=== PATIENT | male | born 1980 | race African-American/Black ===

== ENCOUNTER 2024-05-04 13:21 | Emergency (ER) | payer OTHER ==
[2024-05-04 13:42] VITALS: TEMP 97.9
--- NOTE | 2024-05-04 13:58 | ED ---
Male Urogenital HPI - General Source: patient, RN notes reviewed Mode of arrival: ambulatory Limitations: no limitations <Nella Montero - Last Filed: 05/04/24 13:58> - General Source: patient, RN notes reviewed Mode of arrival: ambulatory Limitations: no limitations <Wendi Jacob - Last Filed: 05/04/24 16:58> - General Chief complaint: Urogenital Stated complaint: Groin pain Time Seen by Provider: 05/04/24 13:40 - History of Present Illness Initial comments: This is a 43 year old male who presents to the emergency department for testicular pain. patient is currently at [facility] and was lifting weights yesterday. He suddenly developed pain to the right testicle. States that this was initially very swollen and after applying ice he was able to get the swelling to improve substantially. This area continues to be painful. He was sent to the emergency department to rule out an inguinal hernia. Denies any hx of similar problems in the past. Denies any urinary issues. (Wendi Jacob) - Related Data Previous Rx's Medication Instructions Recorded Ibuprofen [Motrin] 800 mg PO Q8H PRN #30 tab 05/04/24 Levofloxacin [Levaquin] 500 mg PO DAILY 10 Days #10 tab 05/04/24 Allergies Allergy/AdvReac Type Severity Reaction Status Date / Time No Known Allergies Allergy Verified 05/04/24 13:42 Review of Systems ROS Other: All systems not noted in ROS Statement are negative. <Nella Montero - Last Filed: 05/04/24 13:58> ROS Other: All systems not noted in ROS Statement are negative. <Wendi Jacob - Last Filed: 05/04/24 16:58> ROS Statement: Those systems with pertinent positive or pertinent negative responses have been documented in the HPI. Past Medical History Past Medical History: No Reported History Additional Past Surgical History / Comment(s): neck surgery, Past Psychological History: No Psychological Hx Reported Smoking Status: Current every day smoker Past Alcohol Use History: Abuse, Daily, Heavy Past Drug Use History: None Reported <Nella Montero - Last Filed: 05/04/24 13:58> General Exam Limitations: no limitations <Nella Montero - Last Filed: 05/04/24 13:58> Limitations: no limitations General appearance: alert, in no apparent distress Head exam: Present: atraumatic, normocephalic, normal inspection Respiratory exam: Present: normal lung sounds bilaterally. Absent: respiratory distress, wheezes, rales, rhonchi, stridor Cardiovascular Exam: Present: regular rate, normal rhythm, normal heart sounds. Absent: systolic murmur, diastolic murmur, rubs, gallop, clicks exam: Present: normal inspection, testicular tenderness (right). Absent: urethral discharge Neurological exam: Present: alert, oriented X3, CN II-XII intact Psychiatric exam: Present: normal affect, normal mood Skin exam: Present: warm, dry, intact, normal color. Absent: rash <Wendi Jacob - Last Filed: 05/04/24 16:58> Course Vital Signs 05/04/24 05/04/24 05/04/24 13:37 15:42 16:00 Temperature 97.9 F Pulse Rate 102 H 81 86 Respiratory 18 20 20 Rate Blood Pressure 136/68 131/83 O2 Sat by Pulse 97 98 99 Oximetry Medical Decision Making - Radiology Data Radiology results: report reviewed, image reviewed <Wendi Jacob - Last Filed: 05/04/24 16:58> - Medical Decision Making This is a 43 year old male who presents to the emergency department for testicular pain. Was pt. sent in by a medical professional or institution? @ -[facility] Did you speak to anyone other than the patient for history? @ -No Did you review nursing and triage notes? @ -Yes, and I agree, it is accurate with regards to the patient's symptoms. Were old charts reviewed? @ -No Differential Diagnosis? @ -Differential Scrotal Pain: Hernia, epididymitis, testicular torsion, UTI, STI, this is not meant to be an all-inclusive list. EKG interpreted by me (3pts min.)? @ -Not obtained X-rays interpreted by me (1pt min.)? @ -Not obtained CT interpreted by me (1pt min.)? @ -Not obtained U/S interpreted by me (1pt. min.)? @ -Ultrasound of the scrotum obtained. My interpretation identifies no evidence of testicular torsion What testing was considered but not performed? (CT, X-rays, U/S, labs)? Why? @ -None What meds were considered but not given? Why? @ -None Did you discuss the management of the patient with other professionals? @ -No Did you reconcile home meds? @ -No Was smoking cessation discussed for >3mins.? @ -No Was critical care preformed (if so, how long)? @ -No Were there social determinants of health that impacted care today? How? (Homelessness, low income, unemployed, alcoholism, drug addiction, transportation, low edu. Level, literacy, decrease access to med. care, shelter, rehab)? @ -No Was there de-escalation of care discussed even if they declined? (Discuss DNR or withdrawal of care, Hospice)? @ -No What co-morbidities impacted this encounter? (DM, HTN, Smoking, COPD, CAD, Cancer, CVA, Hep., AIDS, mental health diagnosis, sleep apnea, morbid obesity)? @ -None Was patient admitted / discharged? @ -Discharged. Urinalysis negative for signs of infection. US of the scrotum demonstrates a prominent hyperemia medial to the right testicle with an unclear etiology. They advised correlation for possible epididymitis. Patient does have a fair amount of tenderness to this region. 1g of Ceftriaxone and 1g of azithromycin administered in the emergency department. Rx for Levaquin and Ibuprofen provided for further management. Patient discharged back to [facility] in stable condition. Undiagnosed new problem with uncertain prognosis? @ -None Drug Therapy requiring intensive monitoring for toxicity (Heparin, Nitro, Insulin, Cardizem)? @ -None Were any procedures done? @ -None Diagnosis/symptom? @ -Epididymitis Acute, or Chronic, or Acute on Chronic? @ -Acute Uncomplicated (without systemic symptoms) or Complicated (systemic symptoms)? @ -Uncomplicated Side effects of treatment? @ -None Exacerbation, Progression, or Severe Exacerbation] @ -Not applicable Poses a threat to life or bodily function? @ -No Return precautions reviewed in depth, the patient is instructed to return to the emergency department with any new, worsening, or concerning symptoms. Patient verbalized understanding. This case was discussed in detail with the attending ED physician, Dr. Walsh. Presentation, findings, and treatment plan discussed in detail as well. (Wendi Jacob) - Lab Data Lab Results 05/04/24 Range/Units 14:52 Urine Color Light Yellow Urine Appearance Clear (Clear) Urine pH 7.5 (5.0-8.0) Ur Specific [place] 1.018 (1.001-1.035) Urine Protein Negative (Negative) Urine Glucose (UA) Negative (Negative) Urine Ketones Negative (Negative) Urine Blood Negative (Negative) Urine Nitrite Negative (Negative) Urine Bilirubin Negative (Negative) Urine Urobilinogen <2.0 (<2.0) mg/dL Ur Leukocyte Esterase Negative (Negative) Disposition <Nella Montero - Last Filed: 05/04/24 13:58> Is patient prescribed a controlled substance at d/c from ED?: No Time of Disposition: 15:30 <Wendi Jacob - Last Filed: 05/04/24 16:58> Clinical Impression: Epididymitis Disposition: HOME SELF-CARE Instructions (If sedation given, give patient instructions): Epididymitis (ED) Additional Instructions: Return to the emergency department with any new, worsening, or concerning symptoms. Take the antibiotic as prescribed for 10 days. Alternate with ibuprofen and Tylenol as needed for pain relief. Follow up with your primary care provider in 1-2 days. Prescriptions: Levofloxacin [Levaquin] 500 mg PO DAILY 10 Days #10 tab Ibuprofen [Motrin] 800 mg PO Q8H PRN #30 tab PRN Reason: Pain Referrals: None,Stated [Primary Care Provider] - 1-2 days
[2024-05-04] MEDS: KETOROLAC 15 MG/ML 1 ML VIAL IM STA (14:54)
[2024-05-04 15:07] LABS: Appearance,Urine Clear (Clear); Bilirubin,Urine Negative (Negative); Blood,Urine Negative (Negative); Color,Urine Light Yellow; Glucose,Urine (UA) Negative (Negative); Ketones,Urine Negative (Negative); Leukocyte Esterase,Urine Negative (Negative); Nitrite,Urine Negative (Negative); PH, Urine 7.5 (5.0-8.0); Protein,Urine Negative (Negative); Specific Gravity,Urine 1.018 (1.001-1.035); Urobilinogen,Urine <2.0 mg/dL (<2.0)
--- NOTE | 2024-05-04 15:12 | US ---
EXAMINATION TYPE: US scrotum with doppler. TECHNIQUE: Grayscale and color Doppler Duplex imaging performed of the scrotum. DATE OF EXAM: 05/04/2024 COMPARISON: NONE CLINICAL INDICATION: Male, 43 years old with history of Right sided testicle pain; Right testicle gurpreet ma EXAM MEASUREMENTS: TESTICLES: Right Testicle: 4.4 x 2.5 x 3.3 cm Left Testicle: 4.2 x 2.1 x 3.3 cm EPIDIDYMIS HEAD: Right Epididymis: 1.1 cm, prominent vascularity medial to right testicle Left Epididymis: 1.5 cm Doppler performed to assess for testicular vascularity; good bilateral color flow and waveforms are s een. There is no evidence of testicular torsion. Presence of hydroceles: small fluid collections 3.4cm on the right and 3.8cm on the left Presence of varicoceles: No dilated veins identified. IMPRESSION: 1. No sonographic evidence for testicular torsion. 2. Small bilateral hydroceles. 3. Prominent hyperemia medial to the right testicle. Etiology unclear. No dilated vessels/varicoceles are seen. Correlate for possible epididymitis.
[2024-05-04 16:11] VITALS: RESP 20
[2024-05-04 16:13] VITALS: BP 131/83
[2024-05-04 16:15] VITALS: PULSE 86
[2024-05-04] MEDS: AZITHROMYCIN 500 MG TAB PO STA (16:32)
[2024-05-04] MEDS: LEVOFLOXACIN 500 MG TAB PO STA (16:32)
[2024-05-04] MEDS: cefTRIAXone 1,000 MG VIAL (IM USE) IM STA (16:33)
== END 2024-05-04 16:46 | disposition home or self-care (01) ==
LOC: EC 13:21
DX: N45.1 Epididymitis (principal); N43.3 Hydrocele, unspecified; I86.1 Scrotal varices; F17.200 Nicotine dependence, unspecified, uncomplicated
CPT/HCPCS: 81003; 93975; 76870; 99284; 96372 ×2; J0696; J1885

== ENCOUNTER 2024-05-10 16:03 | Emergency (ER) | payer OTHER ==
[2024-05-10 16:09] VITALS: TEMP 98
[2024-05-10] MEDS: methylPREDNISolone SOD SUCCI 125 MG/2 ML VIAL IM ONE (17:18)
--- NOTE | 2024-05-10 17:25 | XR ---
EXAMINATION TYPE: XR chest 2V DATE OF EXAM: 05/10/2024 COMPARISON: NONE HISTORY: Chest pain TECHNIQUE: Frontal and lateral views of the chest are obtained. FINDINGS: There is no focal air space opacity. No evidence for pneumothorax. No pleural effusion. The cardiac silhouette size is within normal limits. The osseous structures are grossly intact. IMPRESSION: 1. No acute cardiopulmonary process.
[2024-05-10] MEDS: IPRATROPIUM-ALBUTEROL 3 ML NEB INHALATION STA (18:13)
--- NOTE | 2024-05-10 18:20 | ED ---
General Adult HPI - General Chief complaint: Upper Respiratory Infection Stated complaint: cough, SOB Time Seen by Provider: 05/10/24 16:31 Source: patient, RN notes reviewed Mode of arrival: ambulatory Limitations: no limitations - History of Present Illness Initial comments: 43-year-old male presents to the emergency department for upper respiratory s ymptoms for 2 days. Patient reports cough, congestion, sweats. He reports taking Mucinex which helps with his symptoms somewhat. He denies any known fever, chills. Denies chest pain, shortness of breath. He does have a smoking history. No known history of COPD. - Related Data Previous Rx's Medication Instructions Recorded Ibuprofen [Motrin] 800 mg PO Q8H PRN #30 tab 05/04/24 Levofloxacin [Levaquin] 500 mg PO DAILY 10 Days #10 tab 05/04/24 Albuterol Inhaler [Ventolin Hfa 1 - 2 puff INHALATION Q6H PRN #1 05/10/24 Inhaler] each predniSONE 50 mg PO DAILY #5 tab 05/10/24 Allergies Allergy/AdvReac Type Severity Reaction Status Date / Time No Known Allergies Allergy Verified 05/04/24 13:42 Review of Systems ROS Statement: Those systems with pertinent positive or pertinent negative responses have been documented in the HPI. ROS Other: All systems not noted in ROS Statement are negative. Past Medical History Past Medical History: No Reported History Additional Past Surgical History / Comment(s): neck surgery, Past Psychological History: No Psychological Hx Reported Smoking Status: Current every day smoker Past Alcohol Use History: Abuse, Daily, Heavy Past Drug Use History: None Reported General Exam Limitations: no limitations General appearance: alert, in no apparent distress Head exam: Present: atraumatic, normocephalic, normal inspection Eye exam: Present: normal appearance, PERRL, EOMI. Absent: scleral icterus, conjunctival injection, periorbital swelling ENT exam: Present: normal exam, mucous membranes moist Neck exam: Present: normal inspection. Absent: tenderness, meningismus, lymphadenopathy Respiratory exam: Present: wheezes. Absent: respiratory distress, rales, rhonchi, stridor Cardiovascular Exam: Present: regular rate, normal rhythm, normal heart sounds. Absent: systolic murmur, diastolic murmur, rubs, gallop, clicks Extremities exam: Present: normal inspection, full ROM, normal capillary refill. Absent: tenderness, pedal edema, joint swelling, calf tenderness Neurological exam: Present: alert, oriented X3 Psychiatric exam: Present: normal affect, normal mood Skin exam: Present: warm, dry, intact, normal color. Absent: rash Course Vital Signs 05/10/24 05/10/24 05/10/24 16:07 16:25 18:14 Temperature 98 F Pulse Rate 79 84 Respiratory 20 22 Rate Blood Pressure 127/90 O2 Sat by Pulse 98 Oximetry 05/10/24 05/10/24 18:22 18:40 Temperature 98 F Pulse Rate 80 82 Respiratory 20 Rate Blood Pressure 125/87 O2 Sat by Pulse 99 Oximetry Medical Decision Making - Medical Decision Making Was pt. sent in by a medical professional or institution (, [facility], GAS LINE REPAIRER, urgent care, hospital, or usp...) When possible be specific @ -No Did you speak to anyone other than the patient for history (EMS, parent, family, police, friend...)? What history was obtained from this source @ -No Did you review nursing and triage notes (agree or disagree)? Why? @ -I reviewed and agree with nursing and triage notes Were old charts reviewed (outside hosp., previous admission, EMS record, old EKG, old radiological studies, urgent care reports/EKG's, usp records)? Report findings @ -No old charts were reviewed Differential Diagnosis (chest pain, altered mental status, abdominal pain women, abdominal pain men, vaginal bleeding, weakness, fever, dyspnea, syncope, headache, dizziness, GI bleed, back pain, seizure, CVA, palpatations, mental health, musculoskeletal)? @ -COVID, influenza, RSV, bronchitis, COPD exacerbation, this list is not all inclusive EKG interpreted by me (3pts min.). @ -None X-rays interpreted by me (1pt min.). @ -Chest x-ray shows no acute process CT interpreted by me (1pt min.). @ -None done U/S interpreted by me (1pt. min.). @ -None done What testing was considered but not performed or refused? (CT, X-rays, U/S, labs)? Why? @ -None What meds were considered but not given or refused? Why? @ -None Did you discuss the management of the patient with other professionals (professionals i.e. Dr., PA, GAS LINE REPAIRER, lab, RT, psych nurse, vp digital marketing social media and crm, chicken sexer, teacher, strike operations officer, skilled nursing case manager)? Give summary @ -No Was smoking cessation discussed for >3mins.? @ -No Was critical care preformed (if so, how long)? @ -No Were there social determinants of health that impacted care today? How? (Homelessness, low income, unemployed, alcoholism, drug addiction, transportation, low edu. Level, literacy, decrease access to med. care, custodial, rehab)? @ -No Was there de-escalation of care discussed even if they declined (Discuss DNR or withdrawal of care, Hospice)? DNR status @ -No What co-morbidities impacted this encounter? (DM, HTN, Smoking, COPD, CAD, Cancer, CVA, ARF, Chemo, Hep., AIDS, mental health diagnosis, sleep apnea, morbid obesity)? @ -None Was patient admitted / discharged? Hospital course, mention meds given and route, prescriptions, significant lab abnormalities, going to OR and other pertinent info. @ -Discharged. Patient presented to the emergency department for upper respiratory symptoms. Patient was tested for COVID, influenza, RSV which were negative. Chest x-ray was obtained and shows no acute process. He received a DuoNeb treatment along with a dose of Solu-Medrol. He does report some improvement in symptoms with this. This prescription was sent to the patient's pharmacy for an albuterol inhaler and a short course of steroids. Patient will be discharged home. He is understanding agreeable plan. Patient stable at time of discharge. Case discussed with Dr. Ash. Undiagnosed new problem with uncertain prognosis? @ -No Drug Therapy requiring intensive monitoring for toxicity (Heparin, Nitro, Insulin, Cardizem)? @ -No Were any procedures done? @ -No Diagnosis/symptom? @ -Viral URI Acute, or Chronic, or Acute on Chronic? @ -Acute Uncomplicated (without systemic symptoms) or Complicated (systemic symptoms)? @ -Uncomplicated Side effects of treatment? @ -No Exacerbation, Progression, or Severe Exacerbation? @ -No Poses a threat to life or bodily function? How? (Chest pain, [place], [place], pneumonia, PE, COPD, DKA, ARF, appy, cholecystitis, CVA, Diverticulitis, Homicidal, Suicidal, threat to staff... and all critical care pts) @ -No - Lab Data Lab Results 05/10/24 Range/Units 17:08 Influenza Type A (PCR) Not Detected (Not Detectd) Influenza Type B (PCR) Not Detected (Not Detectd) RSV (PCR) Not Detected (Not Detectd) SARS-CoV-2 (PCR) Not Detected (Not Detectd) Disposition Clinical Impression: Viral bronchitis Disposition: HOME SELF-CARE Condition: Stable Instructions (If sedation given, give patient instructions): Upper Respiratory Infection (ED) Additional Instructions: Please ambulance operations supervisor medications and take to completion. Return to the emergency department for new or worsening symptoms. Prescriptions: predniSONE 50 mg PO DAILY #5 tab Albuterol Inhaler [Ventolin Hfa Inhaler] 1 - 2 puff INHALATION Q6H PRN #1 each PRN Reason: Shortness Of Breath Is patient prescribed a controlled substance at d/c from ED?: No Referrals: None,Stated [Primary Care Provider] - 1-2 days
[2024-05-10 18:42] VITALS: BP 125/87; PULSE 82; RESP 20
== END 2024-05-10 18:56 | disposition home or self-care (01) ==
LOC: EC 16:03
DX: J20.8 Acute bronchitis due to other specified organisms (principal); F17.200 Nicotine dependence, unspecified, uncomplicated
CPT/HCPCS: 87636; 71046; 99285; 96372; J2919; 96360

== ENCOUNTER 2024-08-24 15:06 | Emergency (ER) | payer OTHER ==
[2024-08-24 15:19] VITALS: BP 99/67; PULSE 84; RESP 17; TEMP 98
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
--- NOTE | 2024-08-24 16:27 | ED ---
General Adult HPI - General Chief complaint: Alcohol Stated complaint: ETOH Time Seen by Provider: 08/24/24 15:21 Source: EMS Mode of arrival: EMS - History of Present Illness Initial comments: Dictation was produced using [employer] dictation software. please excuse any grammatical, word or spelling errors. Chief Complaint: 43-year-old male with altered mental status History of Present Illness: Patient is a 43-year-old male he was brought in by EMS. Patient was allegedly found sleeping and altered on the bus. There was a friend who reported that patient had large amounts of alcohol today. Patient admits to having some Mis today. He has no complaints. Patient is a limited historian secondary to inebriation The ROS documented in this emergency department record has been reviewed and confirmed by me. Those systems with pertinent positive or negative responses have been documented in the HPI. All other systems are other negative and/or noncontributory. - Related Data Previous Rx's Medication Instructions Recorded Ibuprofen [Motrin] 800 mg PO Q8H PRN #30 tab 05/04/24 Levofloxacin [Levaquin] 500 mg PO DAILY 10 Days #10 tab 05/04/24 Albuterol Inhaler [Ventolin Hfa 1 - 2 puff INHALATION Q6H PRN #1 05/10/24 Inhaler] each predniSONE 50 mg PO DAILY #5 tab 05/10/24 Allergies Allergy/AdvReac Type Severity Reaction Status Date / Time No Known Allergies Allergy Verified 08/24/24 15:18 Review of Systems ROS Statement: Those systems with pertinent positive or pertinent negative responses have been documented in the HPI. ROS Other: All systems not noted in ROS Statement are negative. Past Medical History Past Medical History: No Reported History Additional Past Surgical History / Comment(s): neck surgery, Past Psychological History: No Psychological Hx Reported Smoking Status: Current every day smoker Past Alcohol Use History: Abuse, Daily, Heavy Past Drug Use History: None Reported General Exam - General Exam Comments Initial Comments: PHYSICAL EXAM: General Impression: Alert and oriented x3, not in acute distress inebriated, arousable HEENT: Normocephalic atraumatic, extra-ocular movements intact, pupils equal and reactive to light bilaterally, mucous membranes moist. Cardiovascular: Heart regular rate and rhythm Chest: Able to complete full sentences, no retractions, no tachypnea Abdomen: abdomen soft, non-tender, non-distended, no organomegaly Musculoskeletal: Pulses present and equal in all extremities, no peripheral edema Motor: no focal deficits noted Neurological: CN II-XII grossly intact, no focal motor or sensory deficits noted Skin: Intact with no visualized rashes Psych: Normal affect and mood Course Vital Signs 08/24/24 15:07 Temperature 98 F Pulse Rate 84 Respiratory 17 Rate Blood Pressure 99/67 O2 Sat by Pulse 94 L Oximetry EKG Findings - EKG Comments: EKG Findings:: My EKG interpretation: Ventricular rate 77, sinus rhythm,. 146, QRS 103, QTc 395. No [place] prolongation, no QTC prolongation, no ST or T-wave changes noted. Overall, this EKG is unremarkable Medical Decision Making - Medical Decision Making Was pt. sent in by a medical professional or institution (, PA, HAND TACKER, urgent care, hospital, or fpc...) When possible be specific @ -No Did you speak to anyone other than the patient for history (EMS, parent, family, police, friend...)? What history was obtained from this source @ -No Did you review nursing and triage notes (agree or disagree)? Why? @ -I reviewed and agree with nursing and triage notes Were old charts reviewed (outside hosp., previous admission, EMS record, old EKG, old radiological studies, urgent care reports/EKG's, fpc records)? Report findings @ -No old charts were reviewed Differential Diagnosis (chest pain, altered mental status, abdominal pain women, abdominal pain men, vaginal bleeding, musculoskeletal, weakness, fever, dyspnea, syncope, headache, dizziness, GI bleed, back pain, seizure, CVA, palpatations, mental health)? @ -Differential Altered Mental Status: Hypoglycemia, DKA, hypercapnia, ETOH, overdose, CO poisoning, trauma, myxedema coma, HTN encephalopathy, infection, encephalitis, psychosis, intercranial hemorrhage, hepatic encephalopathy, meningitis, CVA, this is not meant to be an all-inclusive list EKG interpreted by me (3pts min.). @ -As above X-rays interpreted by me (1pt min.). @ -None done CT interpreted by me (1pt min.). @ -CT brain is nonacute U/S interpreted by me (1pt. min.). @ -None done What testing was considered but not performed or refused? (CT, X-rays, U/S, labs)? Why? @ -None What meds were considered but not given or refused? Why? @ -None Was smoking cessation discussed for >3mins.? @ -No Were there social determinants of health that impacted care today? How? (Homelessness, low income, unemployed, alcoholism, drug addiction, transportation, low edu. Level, literacy, decrease access to med. care, skilled nursing, rehab)? @ -No Was there de-escalation of care discussed even if they declined (Discuss DNR or withdrawal of care, Hospice)? DNR status @ -No What co-morbidities impacted this encounter? (DM, HTN, Smoking, COPD, CAD, Cancer, CVA, ARF, Chemo, Hep., AIDS, mental health diagnosis, sleep apnea, morbid obesity)? @ -None Was patient admitted / discharged? Hospital course, mention meds given and route, prescriptions, significant lab abnormalities, going to OR and other pertinent info. @ -43-year-old male who allegedly drank large amounts of alcohol and fell asleep on the bus presents to the emergency department for altered mental status. Vital signs upon arrival are within acceptable limits. Patient inebriated upon initial arrival. Laboratory evaluation obtained. Labs within acceptable limits. Serum alcohol is 172. CT brain is negative. Patient observed emergency department for approximately 3 hours. Reevaluated bedside at 6:00 PM. He appears to be clinically sober. He is up ambulating and mentating normally. Patient be discharged vies follow-up with primary care doctor. Did you discuss the management of the patient with other professionals (professionals i.e. , PA, HAND TACKER, lab, RT, psych nurse, psychiatric social worker, receiving weigher, teacher, quality officer, egg caser)? Give summary @ -No Was critical care preformed (if so, how long)? @ -No Undiagnosed new problem with uncertain prognosis? @ -No Drug Therapy requiring intensive monitoring for toxicity (Heparin, Nitro, Ins ulin, Cardizem)? @ -No Were any procedures done? @ -No Diagnosis/symptom? Acute, or Chronic, or Acute on Chronic? Uncomplicated (without systemic symptoms) or Complicated (systemic symptoms)? @ -Alcohol intoxication Side effects of treatment? @ -No Exacerbation, Progression, or Severe Exacerbation? @ -No Poses a threat to life or bodily function? How? (Chest pain, USA, VT, pneumonia, PE, COPD, DKA, ARF, appy, cholecystitis, CVA, Diverticulitis, Homicidal, Suicidal, threat to staff... and all critical care pts) @ -No - Lab Data Result diagrams: 08/24/24 16:15 08/24/24 16:15 Lab Results 08/24/24 08/24/24 Range/Units 16:15 16:15 WBC 6.6 (3.8-10.6) k/uL RBC 5.85 (4.30-5.90) m/uL Hgb 15.8 (13.0-17.5) gm/dL Hct 49.5 (39.0-53.0) % MCV 84.6 (80.0-100.0) fL MCH 27.1 (25.0-35.0) pg MCHC 32.0 (31.0-37.0) g/dL RDW 13.7 (11.5-15.5) % Plt Count 269 (150-450) k/uL MPV 6.8 Neutrophils % 74 % Lymphocytes % 19 % Monocytes % 4 % Eosinophils % 2 % Basophils % 0 % Neutrophils # 4.9 (1.3-7.7) k/uL Lymphocytes # 1.3 (1.0-4.8) k/uL Monocytes # 0.2 (0-1.0) k/uL Eosinophils # 0.1 (0-0.7) k/uL Basophils # 0.0 (0-0.2) k/uL Sodium 143 (137-145) mmol/L Potassium 5.0 (3.5-5.1) mmol/L Chloride 114 H (98-107) mmol/L Carbon Dioxide 20 L (22-30) mmol/L Anion Gap 9 mmol/L BUN 11 (9-20) mg/dL Creatinine 0.79 (0.66-1.25) mg/dL Est GFR (CKD-EPI)AfAm >90 (>60 ml/min/1.73 sqM) Est GFR (CKD-EPI)NonAf >90 (>60 ml/min/1.73 sqM) Glucose 91 (74-99) mg/dL Calcium 8.5 (8.4-10.2) mg/dL Magnesium 2.4 H (1.6-2.3) mg/dL Total Bilirubin 0.6 (0.2-1.3) mg/dL AST 42 (17-59) U/L ALT 24 (4-49) U/L Alkaline Phosphatase 70 (38-126) U/L Total Protein 7.3 (6.3-8.2) g/dL Albumin 4.2 (3.5-5.0) g/dL Serum Alcohol 172 mg/dL Disposition Clinical Impression: Alcoholic intoxication Disposition: HOME SELF-CARE Condition: Good Instructions (If sedation given, give patient instructions): Alcohol Intoxication (ED) Is patient prescribed a controlled substance at d/c from ED?: No Referrals: None,Stated [Primary Care Provider] - 1-2 days Time of Disposition: 18:06
[2024-08-24 16:31] LABS: Basophils % (A) 0 %; Eosinophils # (A) 0.1 k/uL (0-0.7); Eosinophils % (A) 2 %; HCT 49.5 % (39.0-53.0); HGB 15.8 gm/dL (13.0-17.5); Lymphocytes # (A) 1.3 k/uL (1.0-4.8); Lymphocytes % (A) 19 %; MCH 27.1 pg (25.0-35.0); MCV 84.6 fL (80.0-100.0); Mean Platelet Volume 6.8; Monocytes # (A) 0.2 k/uL (0-1.0); Monocytes % (A) 4 %; Neutrophils # (A) 4.9 k/uL (1.3-7.7); Neutrophils % (A) 74 %; Platelet Count 269 k/uL (150-450); RBC 5.85 m/uL (4.30-5.90); RDW 13.7 % (11.5-15.5); WBC 6.6 k/uL (3.8-10.6)
[2024-08-24 16:46] LABS: ALT 24 U/L (4-49); AST 42 U/L (17-59); African American GFR (CKD) >90 (>60 ml/min/1.73 sqM); Albumin 4.2 g/dL (3.5-5.0); Alkaline Phosphatase 70 U/L (38-126); Anion Gap 9 mmol/L; Blood Urea Nitrogen 11 mg/dL (9-20); Calcium 8.5 mg/dL (8.4-10.2); Carbon Dioxide 20 mmol/L (22-30); Chloride 114 mmol/L (98-107); Glucose 91 mg/dL (74-99); Magnesium 2.4 mg/dL (1.6-2.3); Non-African American GFR(CKD) >90 (>60 ml/min/1.73 sqM); Sodium 143 mmol/L (137-145); Total Bilirubin 0.6 mg/dL (0.2-1.3); Total Protein 7.3 g/dL (6.3-8.2)
[2024-08-24 17:02] LABS: Alcohol 172 mg/dL
== END 2024-08-24 19:20 | disposition home or self-care (01) ==
LOC: EC 15:06
DX: F10.129 Alcohol abuse with intoxication, unspecified (principal); F17.200 Nicotine dependence, unspecified, uncomplicated; Y90.6 Blood alcohol level of 120-199 mg/100 ml
CPT/HCPCS: 36415; 80053; 83735; 85025; 70450; 99284; G0480; 80320

== ENCOUNTER 2024-11-11 18:50 | Inpatient (IN) | payer MEDICAID, OTHER ==
--- NOTE | 2024-11-11 19:04 | ED ---
General Adult HPI - General Source: patient Mode of arrival: ambulatory Limitations: no limitations <Tres Dang - Last Filed: 11/11/24 20:46> <Brandon Tena - Last Filed: 11/13/24 01:36> - General Chief complaint: Psychiatric Symptoms Stated complaint: suicidal Time Seen by Provider: 11/11/24 19:00 - History of Present Illness Initial comments: Patient brought to the ED by police or patrol park officer for evaluation. Patient reports that he has been under a lot of stress and has had suicidal ideations recently. Patient reports drinking "two fifths of [place]" in a suicidal attempt today. Patient states that he is not a regular alcohol drinker, but he does drink alcohol occasionally. Patient denies illicit drug use or medication abuse/overdose. Patient denies trauma or injury. Patient states that he is from [place], [place]. Patient denies any prior psychiatric history. Patient denies having any pain, headache, chest pain, dyspnea, palpitations, dizziness, abdominal pain, nausea or vomiting, hallucinations, homicidal ideations, or any other symptoms or complaints. (Tres Dang) - Related Data Home Medications Medication Instructions Recorded Confirmed No Known Home Medications 11/11/24 11/11/24 Allergies Allergy/AdvReac Type Severity Reaction Status Date / Time No Known Allergies Allergy Verified 11/11/24 19:32 Review of Systems ROS Other: All systems not noted in ROS Statement are negative. <Tres Dang - Last Filed: 11/11/24 20:46> ROS Other: All systems not noted in ROS Statement are negative. <Brandon Tena - Last Filed: 11/13/24 01:36> ROS Statement: Those systems with pertinent positive or pertinent negative responses have been documented in the HPI. Past Medical History Past Medical History: No Reported History Additional Past Surgical History / Comment(s): neck surgery, Past Psychological History: No Psychological Hx Reported Smoking Status: Current every day smoker Past Alcohol Use History: Abuse, Daily, Heavy Past Drug Use History: None Reported <Tres Dang - Last Filed: 11/11/24 20:46> General Exam Limitations: no limitations General appearance: alert, other (Patient appears intoxicated) Head exam: Present: atraumatic, normocephalic Eye exam: Present: PERRL, EOMI ENT exam: Present: mucous membranes moist Neck exam: Present: other (Trachea is in midline). Absent: tenderness, meningismus Respiratory exam: Present: normal lung sounds bilaterally. Absent: respiratory distress, wheezes, rales, rhonchi, stridor Cardiovascular Exam: Present: regular rate, normal rhythm, normal heart sounds, other (Normal radial pulses bilaterally) GI/Abdominal exam: Present: soft. Absent: distended, tenderness, guarding Extremities exam: Absent: pedal edema Neurological exam: Present: alert, motor sensory deficit. Absent: CN II-XII intact Psychiatric exam: Present: agitated Skin exam: Present: warm, dry, intact, normal color <Tres Dang - Last Filed: 11/11/24 20:46> Course Vital Signs 11/11/24 11/11/24 11/12/24 18:54 23:05 09:27 Temperature 98.2 F 98.1 F Pulse Rate 63 92 63 Respiratory 24 17 18 Rate Blood Pressure 107/60 147/82 O2 Sat by Pulse 98 95 99 Oximetry Medical Decision Making <Tres Dang - Last Filed: 11/11/24 20:46> - Lab Data Result diagrams: 11/12/24 02:46 11/12/24 02:46 <Brandon Tena - Last Filed: 11/13/24 01:36> - Medical Decision Making Was pt. sent in by a medical professional or institution ([facility]son, [employer]UR[employer] GENERATOR OILER, urgent care, hospital, or fci...) When possible be specific @ -No Did you speak to anyone other than the patient for history (EMS, parent, family, police, friend...)? What history was obtained from this source @ -No Did you review nursing and triage notes (agree or disagree)? Why? @ -I reviewed and agree with nursing and triage notes Were old charts reviewed (outside hosp., previous admission, EMS record, old EKG, old radiological studies, urgent care reports/EKG's, fci records)? Report findings @ -No old charts were reviewed Differential Diagnosis (chest pain, altered mental status, abdominal pain women, abdominal pain men, vaginal bleeding, weakness, fever, dyspnea, syncope, headache, dizziness, GI bleed, back pain, seizure, CVA, palpatations, mental health, musculoskeletal)? @ -Drug abuse, alcohol abuse, psychiatric disease, suicidal ideations, depression, anxiety, psychosis, bipolar disorder, this is not meant to be a complete list. EKG interpreted by me (3pts min.). @ -None done X-rays interpreted by me (1pt min.). @ -Right knee x-rays were reviewed myself and show no acute osseous abnormality. I agree with the radiologist's interpretation as above. CT interpreted by me (1pt min.). @ -None done U/S interpreted by me (1pt. min.). @ -None done What testing was considered but not performed or refused? (CT, X-rays, U/S, labs)? Why? @ -None What meds were considered but not given or refused? Why? @ -None Did you discuss the management of the patient with other professionals (professionals i.e. , PA, TURBO GENERATOR OILER, lab, RT, psych nurse, manager social, corporation lawyer, teacher, u[employer]s. revenue officer, nurse case manager)? Give summary @ -No Was smoking cessation discussed for >3mins.? @ -No Was critical care preformed (if so, how long)? @ -No Were there social determinants of health that impacted care today? How? (Homelessness, low income, unemployed, alcoholism, drug addiction, transp ortation, low edu. Level, literacy, decrease access to med. care, fci, rehab)? @ -No Was there de-escalation of care discussed even if they declined (Discuss DNR or withdrawal of care, Hospice)? DNR status @ -No What co-morbidities impacted this encounter? (DM, HTN, Smoking, COPD, CAD, Cancer, CVA, ARF, Chemo, Hep., AIDS, mental health diagnosis, sleep apnea, morbid obesity)? @ -None Was patient admitted / discharged? Hospital course, mention meds given and route, prescriptions, significant lab abnormalities, going to OR and other pertinent info. @ -Right knee x-rays were obtained as patient was complaining of having chronic right knee pain. Right knee x-rays are negative for acute fracture or dislocation. Patient's BAT is 0.128. Patient's urine drug screen is still pending at this time. 2100- Patient was endorsed to Dr. Tena (secondary to shift change) with EPS evaluation still pending. Dr. Tena to take over care of the patient at this time. (Tres Dang) Been medically cleared and was awaiting EPS evaluation. He was evaluated by mental health and felt to require inpatient psychiatric care. I completed a clinical certification on this patient. And the [place] require [place] (Brandon Tena) - Lab Data Lab Results 11/12/24 11/12/24 11/12/24 Range/Units 00:04 02:46 02:46 WBC 7.0 (3.8-10.6) k/uL RBC 4.93 (4.30-5.90) m/uL Hgb 13.5 (13.0-17.5) gm/dL Hct 41.3 (39.0-53.0) % MCV 83.6 (80.0-100.0) fL MCH 27.3 (25.0-35.0) pg MCHC 32.6 (31.0-37.0) g/dL RDW 13.7 (11.5-15.5) % Plt Count 311 (150-450) k/uL MPV 7.1 Neutrophils % 55 % Lymphocytes % 30 % Monocytes % 6 % Eosinophils % 5 % Basophils % 1 % Neutrophils # 3.9 (1.3-7.7) k/uL Lymphocytes # 2.1 (1.0-4.8) k/uL Monocytes # 0.4 (0-1.0) k/uL Eosinophils # 0.4 (0-0.7) k/uL Basophils # 0.0 (0-0.2) k/uL Sodium 135 L (137-145) mmol/L Potassium 4.2 (3.5-5.1) mmol/L Chloride 103 (98-107) mmol/L Carbon Dioxide 23 (22-30) mmol/L Anion Gap 9 mmol/L BUN 11 (9-20) mg/dL Creatinine 0.80 (0.66-1.25) mg/dL Est GFR (CKD-EPI)AfAm >90 (>60 ml/min/1.73 sqM) Est GFR (CKD-EPI)NonAf >90 (>60 ml/min/1.73 sqM) Glucose 117 H (74-99) mg/dL Calcium 8.4 (8.4-10.2) mg/dL Total Bilirubin 0.3 (0.2-1.3) mg/dL AST 27 (17-59) U/L ALT 18 (4-49) U/L Alkaline Phosphatase 101 (38-126) U/L Total Protein 6.3 (6.3-8.2) g/dL Albumin 3.6 (3.5-5.0) g/dL Urine Color Yellow Urine Appearance Clear (Clear) Urine pH 5.5 (5.0-8.0) Ur Specific [place] 1.028 (1.001-1.035) Urine Protein Trace H (Negative) Ur Protein Confirm Not Reportable Urine Glucose (UA) Negative (Negative) Urine Ketones Negative (Negative) Urine Blood Negative (Negative) Urine Nitrite Negative (Negative) Urine Bilirubin Negative (Negative) Ur Bilirubin Confirm Not Reportable Urine Urobilinogen 2.0 (<2.0) mg/dL Ur Leukocyte Esterase Negative (Negative) Urine Opiates Screen Not Detected (NotDetected) Ur Oxycodone Screen Not Detected (NotDetected) Urine Methadone Screen Not Detected (NotDetected) Ur Barbiturates Screen Not Detected (NotDetected) U Tricyclic Antidepress Not Detected (NotDetected) Ur Phencyclidine Scrn Not Detected (NotDetected) Ur Amphetamines Screen Not Detected (NotDetected) U Methamphetamines Scrn Not Detected (NotDetected) U Benzodiazepines Scrn Not Detected (NotDetected) Urine Cocaine Screen Not Detected (NotDetected) U Marijuana (THC) Screen Detected H (NotDetected) Influenza Type A (PCR) (Not Detectd) Influenza Type B (PCR) (Not Detectd) RSV (PCR) (Not Detectd) SARS-CoV-2 (PCR) (Not Detectd) 11/12/24 Range/Units 02:46 WBC (3.8-10.6) k/uL RBC (4.30-5.90) m/uL Hgb (13.0-17.5) gm/dL Hct (39.0-53.0) % MCV (80.0-100.0) fL MCH (25.0-35.0) pg MCHC (31.0-37.0) g/dL RDW (11.5-15.5) % Plt Count (150-450) k/uL MPV Neutrophils % % Lymphocytes % % Monocytes % % Eosinophils % % Basophils % % Neutrophils # (1.3-7.7) k/uL Lymphocytes # (1.0-4.8) k/uL Monocytes # (0-1.0) k/uL Eosinophils # (0-0.7) k/uL Basophils # (0-0.2) k/uL Sodium (137-145) mmol/L Potassium (3.5-5.1) mmol/L Chloride (98-107) mmol/L Carbon Dioxide (22-30) mmol/L Anion Gap mmol/L BUN (9-20) mg/dL Creatinine (0.66-1.25) mg/dL Est GFR (CKD-EPI)AfAm (>60 ml/min/1.73 sqM) Est GFR (CKD-EPI)NonAf (>60 ml/min/1.73 sqM) Glucose (74-99) mg/dL Calcium (8.4-10.2) mg/dL Total Bilirubin (0.2-1.3) mg/dL AST (17-59) U/L ALT (4-49) U/L Alkaline Phosphatase (38-126) U/L Total Protein (6.3-8.2) g/dL Albumin (3.5-5.0) g/dL Urine Color Urine Appearance (Clear) Urine pH (5.0-8.0) Ur Specific [place] (1.001-1.035) Urine Protein (Negative) Ur Protein Confirm Urine Glucose (UA) (Negative) Urine Ketones (Negative) Urine Blood (Negative) Urine Nitrite (Negative) Urine Bilirubin (Negative) Ur Bilirubin Confirm Urine Urobilinogen (<2.0) mg/dL Ur Leukocyte Esterase (Negative) Urine Opiates Screen (NotDetected) Ur Oxycodone Screen (NotDetected) Urine Methadone Screen (NotDetected) Ur Barbiturates Screen (NotDetected) U Tricyclic Antidepress (NotDetected) Ur Phencyclidine Scrn (NotDetected) Ur Amphetamines Screen (NotDetected) U Methamphetamines Scrn (NotDetected) U Benzodiazepines Scrn (NotDetected) Urine Cocaine Screen (NotDetected) U Marijuana (THC) Screen (NotDetected) Influenza Type A (PCR) Not Detected (Not Detectd) Influenza Type B (PCR) Not Detected (Not Detectd) RSV (PCR) Not Detected (Not Detectd) SARS-CoV-2 (PCR) Not Detected (Not Detectd) - Radiology Data Right knee x-rays: 1. No acute fracture or dislocation in the right knee. 2. Moderate sized right knee suprapatellar joint effusion. (Tres Dang) Disposition <Tres Dang - Last Filed: 11/11/24 20:46> Is patient prescribed a controlled substance at d/c from ED?: No Time of Disposition: 01:30 <Brandon Tena - Last Filed: 11/13/24 01:36> Clinical Impression: Suicidal ideations, Alcohol intoxication Disposition: ADMITTED IP TO THIS HOSP Condition: Stable
--- NOTE | 2024-11-11 20:43 | XR ---
EXAMINATION TYPE: XR knee complete RT DATE OF EXAM: 11/11/2024 8:38 PM COMPARISON: None. CLINICAL INDICATION: Male, 43 years old with history of chronic right knee pain; [facility] TECHNIQUE: XR knee complete RT views submitted.. FINDINGS: No acute fracture or dislocation. Mild tricompartmental degenerative arthritis. No acute fo rhonda osseous erosion or aggressive periosteal reaction. Moderate sized suprapatellar joint effusion. IMPRESSION: 1. No acute fracture or dislocation in the right knee. 2. Moderate sized right knee suprapatellar joint effusion. [facility], , 11/11/2024 8:41 PM
[2024-11-12] MEDS: IBUPROFEN 800 MG TAB PO STA (00:09)
[2024-11-12 00:42] LABS: Amphetamine Screen,Urine Not Detected (NotDetected); Barbiturate Screen,Urine Not Detected (NotDetected); Benzodiazepines Screen,Urine Not Detected (NotDetected); Cocaine Screen,Urine Not Detected (NotDetected); Methadone Screen, Urine Not Detected (NotDetected); Opiate Screen,Urine Not Detected (NotDetected); Oxycodone Screen, Urine Not Detected (NotDetected); Phencyclidine Screen,Urine Not Detected (NotDetected); Tricyclic Antidepressant,Urine Not Detected (NotDetected); Urn Cannabinoid Scrn Detected (NotDetected)
[2024-11-12 02:29] LABS: Appearance,Urine Clear (Clear); Bilirubin,Urine Negative (Negative); Blood,Urine Negative (Negative); Color,Urine Yellow; Glucose,Urine (UA) Negative (Negative); Ketones,Urine Negative (Negative); Leukocyte Esterase,Urine Negative (Negative); Nitrite,Urine Negative (Negative); PH, Urine 5.5 (5.0-8.0); Protein,Urine Trace (Negative); Specific Gravity,Urine 1.028 (1.001-1.035)
[2024-11-12 03:09] LABS: Basophils % (A) 1 %; Eosinophils # (A) 0.4 k/uL (0-0.7); Eosinophils % (A) 5 %; HCT 41.3 % (39.0-53.0); HGB 13.5 gm/dL (13.0-17.5); Lymphocytes # (A) 2.1 k/uL (1.0-4.8); Lymphocytes % (A) 30 %; MCH 27.3 pg (25.0-35.0); MCHC 32.6 g/dL (31.0-37.0); MCV 83.6 fL (80.0-100.0); Mean Platelet Volume 7.1; Monocytes # (A) 0.4 k/uL (0-1.0); Monocytes % (A) 6 %; Neutrophils # (A) 3.9 k/uL (1.3-7.7); Neutrophils % (A) 55 %; Platelet Count 311 k/uL (150-450); RBC 4.93 m/uL (4.30-5.90); RDW 13.7 % (11.5-15.5)
[2024-11-12 03:19] LABS: ALT 18 U/L (4-49); AST 27 U/L (17-59); African American GFR (CKD) >90 (>60 ml/min/1.73 sqM); Albumin 3.6 g/dL (3.5-5.0); Alkaline Phosphatase 101 U/L (38-126); Anion Gap 9 mmol/L; Blood Urea Nitrogen 11 mg/dL (9-20); Calcium 8.4 mg/dL (8.4-10.2); Carbon Dioxide 23 mmol/L (22-30); Chloride 103 mmol/L (98-107); Glucose 117 mg/dL (74-99); Non-African American GFR(CKD) >90 (>60 ml/min/1.73 sqM); Potassium 4.2 mmol/L (3.5-5.1); Sodium 135 mmol/L (137-145); Total Bilirubin 0.3 mg/dL (0.2-1.3); Total Protein 6.3 g/dL (6.3-8.2)
[2024-11-12 03:47] LABS: Influenza A Not Detected (Not Detectd); Influenza B Not Detected (Not Detectd); RSV Not Detected (Not Detectd)
[2024-11-12] MEDS ORDERED: HALOPERIDOL LACTATE 5 MG/ML 1 ML VIAL IM PRN (07:18)
[2024-11-12] MEDS ORDERED: LORazepam 2 MG/ML INJ IM PRN (07:18)
[2024-11-12] MEDS ORDERED: IBUPROFEN 600 MG TAB PO PRN (07:18)
[2024-11-12] MEDS ORDERED: ACETAMINOPHEN TAB 325 MG TAB PO PRN (07:18)
[2024-11-12] MEDS ORDERED: LORazepam 1 MG TAB PO PRN (07:18)
[2024-11-12] MEDS ORDERED: MAGNESIUM HYDROXIDE 2,400 MG/30 ML CUP PO PRN (07:18)
[2024-11-12] MEDS ORDERED: MAG HYDROX/AL HYDROX/SIMETH 355 ML BOTTLE PO PRN (07:18)
[2024-11-12] MEDS: NICOTINE 14MG/24HR PATCH TRANSDERM SCH (09:07)
[2024-11-12 10:18] VITALS: BP 166/74; PULSE 87; RESP 20; TEMP 97.3
--- NOTE | 2024-11-12 12:44 | P.HP ---
Psychiatric H&P - . H&P Date: 11/12/24 History & Physical: Allergies Allergy/AdvReac Type Severity Reaction Status Date / Time No Known Allergies Allergy Verified 11/11/24 19:32 Vital Signs Temp 97.3 F L 11/12/24 09:58 Pulse 87 11/12/24 09:58 Resp 20 11/12/24 09:58 BP 166/74 11/12/24 09:58 Pulse Ox 98 11/12/24 09:58 FiO2 Intake & Output 11/11/24 11/12/24 11/12/24 18:59 06:59 18:59 Weight 92.986 kg 93.259 kg Laboratory Last Values WBC 7.0 k/uL (3.8-10.6) 11/12/24 02:46 RBC 4.93 m/uL (4.30-5.90) 11/12/24 02:46 Hgb 13.5 gm/dL (13.0-17.5) 11/12/24 02:46 Hct 41.3 % (39.0-53.0) 11/12/24 02:46 MCV 83.6 fL (80.0-100.0) 11/12/24 02:46 MCH 27.3 pg (25.0-35.0) 11/12/24 02:46 MCHC 32.6 g/dL (31.0-37.0) 11/12/24 02:46 RDW 13.7 % (11.5-15.5) 11/12/24 02:46 Plt Count 311 k/uL (150-450) 11/12/24 02:46 MPV 7.1 11/12/24 02:46 Neutrophils % 55 % 11/12/24 02:46 Lymphocytes % 30 % 11/12/24 02:46 Monocytes % 6 % 11/12/24 02:46 Eosinophils % 5 % 11/12/24 02:46 Basophils % 1 % 11/12/24 02:46 Neutrophils # 3.9 k/uL (1.3-7.7) 11/12/24 02:46 Lymphocytes # 2.1 k/uL (1.0-4.8) 11/12/24 02:46 Monocytes # 0.4 k/uL (0-1.0) 11/12/24 02:46 Eosinophils # 0.4 k/uL (0-0.7) 11/12/24 02:46 Basophils # 0.0 k/uL (0-0.2) 11/12/24 02:46 Sodium 135 mmol/L (137-145) L 11/12/24 02:46 Potassium 4.2 mmol/L (3.5-5.1) 11/12/24 02:46 Chloride 103 mmol/L (98-107) 11/12/24 02:46 Carbon Dioxide 23 mmol/L (22-30) 11/12/24 02:46 Anion Gap 9 mmol/L 11/12/24 02:46 BUN 11 mg/dL (9-20) 11/12/24 02:46 Creatinine 0.80 mg/dL (0.66-1.25) 11/12/24 02:46 Est GFR (CKD-EPI)AfAm >90 (>60 ml/min/1.73 sqM) 11/12/24 02:46 Est GFR (CKD-EPI)NonAf >90 (>60 ml/min/1.73 sqM) 11/12/24 02:46 Glucose 117 mg/dL (74-99) H 11/12/24 02:46 Calcium 8.4 mg/dL (8.4-10.2) 11/12/24 02:46 Total Bilirubin 0.3 mg/dL (0.2-1.3) 11/12/24 02:46 AST 27 U/L (17-59) 11/12/24 02:46 ALT 18 U/L (4-49) 11/12/24 02:46 Alkaline Phosphatase 101 U/L (38-126) 11/12/24 02:46 Total Protein 6.3 g/dL (6.3-8.2) 11/12/24 02:46 Albumin 3.6 g/dL (3.5-5.0) 11/12/24 02:46 Urine Color Yellow 11/12/24 00:04 Urine Appearance Clear (Clear) 11/12/24 00:04 Urine pH 5.5 (5.0-8.0) 11/12/24 00:04 Ur Specific [place] 1.028 (1.001-1.035) 11/12/24 00:04 Urine Protein Trace (Negative) H 11/12/24 00:04 Ur Protein Confirm Not Reportable 11/12/24 00:04 Urine Glucose (UA) Negative (Negative) 11/12/24 00:04 Urine Ketones Negative (Negative) 11/12/24 00:04 Urine Blood Negative (Negative) 11/12/24 00:04 Urine Nitrite Negative (Negative) 11/12/24 00:04 Urine Bilirubin Negative (Negative) 11/12/24 00:04 Ur Bilirubin Confirm Not Reportable 11/12/24 00:04 Urine Urobilinogen 2.0 mg/dL (<2.0) 11/12/24 00:04 Ur Leukocyte Esterase Negative (Negative) 11/12/24 00:04 Urine Opiates Screen Not Detected (NotDetected) 11/12/24 00:04 Ur Oxycodone Screen Not Detected (NotDetected) 11/12/24 00:04 Urine Methadone Screen Not Detected (NotDetected) 11/12/24 00:04 Ur Barbiturates Screen Not Detected (NotDetected) 11/12/24 00:04 U Tricyclic Antidepress Not Detected (NotDetected) 11/12/24 00:04 Ur Phencyclidine Scrn Not Detected (NotDetected) 11/12/24 00:04 Ur Amphetamines Screen Not Detected (NotDetected) 11/12/24 00:04 U Methamphetamines Scrn Not Detected (NotDetected) 11/12/24 00:04 U Benzodiazepines Scrn Not Detected (NotDetected) 11/12/24 00:04 Urine Cocaine Screen Not Detected (NotDetected) 11/12/24 00:04 U Marijuana (THC) Screen Detected (NotDetected) H 11/12/24 00:04 Influenza Type A (PCR) Not Detected (Not Detectd) 11/12/24 02:46 Influenza Type B (PCR) Not Detected (Not Detectd) 11/12/24 02:46 RSV (PCR) Not Detected (Not Detectd) 11/12/24 02:46 SARS-CoV-2 (PCR) Not Detected (Not Detectd) 11/12/24 02:46 11/12/24 12:38 IDENTIFYING DATA: Patient is a 43-year-old -[place] male, currently homeless, he is single HPI: Patient presented to the hospital last night and was evaluated by EPS nurse and according to note "Pt presents to ER after reportedly drinking ETOH in an attempt to kill himself. BAT was 0.128 upon arrival. Once sober, assessment was completed. Pt woken up for assessment and was alice and cooperative. Flat affect. States he is "so tired and done." States he has been having increasing dep ression and SI with a plan to drink ETOH and OD on pills. Denies HI. Denies AV hallusinations. Still currently endorsing SI and is unable to contract for safety." Patient was seen today in his room, he was approached by card writer hand. Patient was fairly lethargic today states that he was feeling tired. He was somewhat uncooperative with the interview only answered some questions. Claims that he came into the hospital because he was feeling depressed and wanted to go to [facility]. Claims that he was having suicidal thoughts however did not mention a specific plan. He claims that someone at the residential told him about [address] and how "you guys help people". He is reporting some anxiety, does claim that he has minor withdrawals including tremors. Claims that he is not feeling well was mildly irritable during the interview. He asked card writer hand if he could call [facility] for him. Denied any other stressors besides being homeless recently got "kicked out" of his old place. Claims that his sleep and appetite are fair. Patient denies any current suicidal or homicidal ideations intent or plan. At this time patient denies any auditory or visual hallucinations. Patient denies any flight of ideas racing thoughts and increased in goal directed behavior. Patient admits to using alcohol drinking "several beers" a day. Claims that he also smokes marijuana. He was a fairly poor historian, did not offer much past psychiatric or social history information. PAST PSYCHIATRIC HISTORY: Patient has a history of alcohol use and depression. Patient denies being on any psychiatric medications. Patient denies any previous psychiatric hospitalizations. Patient denies any psychiatric outpatient follow-up. Patient denies any history of suicide attempts in the past. PMH: as per ER note ALLERGIES: as per EMR CHEMICAL DEPENDENCY HISTORY: as per HPI FAMILY PSYCHIATRIC/SUBSTANCE USE HISTORY: Denies SOCIAL HISTORY: Patient not offer much social history, does claim that he is currently homeless he is single. He states that he has "a few kids". He is currently on probation however did not explain why. MENTAL STATUS EXAM: General Appearance: Patient appears to be laying in bed, sheets covered, irritable at times stated age is alert, fairly uncooperative. Patient appears to have poor hygiene and grooming. Behavior: Patient is seated without any agitated behavior. Uncooperative, evasive Speech: Patient's speech is fluent and nonpressured. [place] Mood/Affect: Patient reports their mood is depressed anxious, affect is congruent and constricted. Suicidality/Homicidality: Patient denies having any homicidal ideation intent or plan. Denies any suicidal ideations intent or plan Perceptions: Patient denies any visual hallucinations and denies any auditory hallucinations Though content/process: Fairly concrete, poverty of content. Guarded. Memory and concentration: AOX3, grossly intact for the purposes of this session. Judgment and insight: Poor STRENGTHS/WEAKNESSES: strength is that patient is resilient. Weakness is that patient has poor judgment and is impulsive and is currently homeless INTELLECT: Average IMPRESSIONS: Depressive disorder unspecified Alcohol use disorder severe dependence currently in withdrawal Cannabis use disorder Nicotine dependence Personality disorder unspecified Homelessness PLAN: -Patient is admitted under voluntary status to MHU for stabilization of psychiatric symptoms and safety. Patient has signed adult voluntary form and and is placed in patient's chart. -Medications : Trazodone 25 mg nightly for sleep/mood, Zoloft 25 mg nightly for mood/anxiety. Librium 20 mg 3 times daily with plan to taper off for alcohol cravings. Refusing any anticraving medications at this time for alcohol. -Ativan and Haldol PRN for agitation/aggression -Started thiamine, MVM for etoh use -CIWA protocol with Ativan PRN for ETOH withdrawal. -Patient was counselled on substance abuse and desired to cut back on use. He states that he is interested in calling rehab likely tomorrow for intake. -Patient was informed of the risks, benefits and side effects of the medication and patient verbally consented to taking the medication -Internal Medicine consult to perform medical evaluation and physical. -NRT -nicotine patch -SW on board for discharge planning. Encourage patient to participate in groups to work on coping skills. 11/12/24 12:43
[2024-11-12] MEDS: haloperidoL 5 MG TAB PO PRN (14:27)
[2024-11-12] MEDS: SERTRALINE 25 MG TAB PO SCH (20:50)
[2024-11-12] MEDS: traZODone HCL 50 MG TAB PO SCH (20:50)
[2024-11-13] MEDS: MULTIVITAMINS, THERA 1 EACH TAB PO SCH (08:59)
[2024-11-13] MEDS: THIAMINE 100 MG TAB PO SCH (08:59)
[2024-11-13] MEDS: FOLIC ACID 1 MG TAB PO SCH (08:59)
[2024-11-13 10:34] LABS: ALT 20 U/L (4-49); AST 25 U/L (17-59); Albumin 3.9 g/dL (3.5-5.0); Alkaline Phosphatase 98 U/L (38-126); Bilirubin, Delta 0.1 mg/dL (0.0-0.2); Bilirubin,Unconjugated 0.3 mg/dL (0.0-1.1); Total Bilirubin 0.4 mg/dL (0.2-1.3); Total Protein 6.8 g/dL (6.3-8.2)
[2024-11-13] MEDS: NICOTINE GUM (POLACRILEX) 2 MG GUM BUCCAL PRN (11:05)
--- NOTE | 2024-11-13 11:23 | P.PN ---
Progress Note - Text Progress Note Date: 11/13/24 Interval history: Patient was seen today for psychiatric follow-up. Patient was agreeable to sp luzmaria today in underwriter solicitation director's office. He was reported that patient has been having behavioral issues, sexually preoccupied with females on the unit. Patient was also reportedly calling staff racist. Patient states that he is doing better with regards to his mood and anxiety. Claims that he was shocked to hear that staff are making these reports about him. States that he wants to do better for himself and wants to go to rehab, he was given the rehab phone number today to make the call. Claims that the withdrawals are better at this time. States that he was able to sleep fairly last night. Denies any auditory or visual hallucinations denies any suicidal homicidal ideations intent or plan. MENTAL STATUS EXAM: General Appearance: Patient appears to be wandering the hallways, alert, cooperative today, stated age is alert Patient appears to have ring hygiene and grooming. Behavior: Patient is seated without any agitated behavior. More cooperative today Speech: Patient's speech is fluent and nonpressured. Mood/Affect: Patient reports their mood is improving mildly, affect is congruent and constricted. Suicidality/Homicidality: Patient denies having any homicidal ideation intent or plan. Denies any suicidal ideations intent or plan Perceptions: Patient denies any visual hallucinations and denies any auditory hallucinations Though content/process: Rationalizing at times, no delusions or paranoia. Memory and concentration: AOX3, grossly intact for the purposes of this session. Judgment and insight: Poor/impulsive, improving mildly IMPRESSIONS: Depressive disorder unspecified Alcohol use disorder severe dependence currently in withdrawal Cannabis use disorder Nicotine dependence Personality disorder unspecified Homelessness PLAN: -Patient is admitted under voluntary status to MHU for stabilization of psychiatric symptoms and safety. Patient has signed adult voluntary form and and is placed in patient's chart. -Medications : Discontinue trazodone and replace with Seroquel 50 mg nightly for sleep/mood, Zoloft 25 mg nightly for mood/anxiety. Continue decreasing Librium 10 mg 4 times daily with plan to taper off for alcohol cravings. Refusing any anticraving medications at this time for alcohol. -Ativan and Haldol PRN for agitation/aggression -CIWA protocol with Ativan PRN for ETOH withdrawal. -NRT -nicotine patch -SW on board for discharge planning. Encourage patient to participate in groups to work on coping skills. Patient will be making the call to rehab today for screening. Likely discharge tomorrow
--- NOTE | 2024-11-13 14:12 | P.DS ---
Providers Date of admission: 11/12/24 07:08 Expected date of discharge: 11/13/24 Attending physician: Balwinder Davidson MD Consults: 11/12/24 07:18 Consult Physician Routine Consulting Provider: Hari Eaton Consult Reason/Comments: Medical H&P Do you want consulting provider notified?: Yes Primary care physician: Stated None - Discharge Diagnosis(es) (1) Depressive disorder Current Visit: Yes Status: Acute Priority: High (2) Alcohol use disorder, severe, dependence Current Visit: Yes Status: Acute Priority: Medium (3) Cannabis use disorder Current Visit: Yes Status: Acute Priority: Medium (4) Nicotine dependence Current Visit: Yes Status: Acute Priority: Low (5) Personality disorder Current Visit: Yes Status: Acute Priority: High (6) Homelessness Current Visit: Yes Status: Acute Priority: High (7) Legal problem Current Visit: Yes Status: Acute Priority: Medium Hospital Course: Admission HPI: Admission note was completed by ad copy writer "Patient is a 43-year-old - [place] male, currently homeless, he is single. Patient presented to the hospital last night and was evaluated by EPS nurse and according to note "Pt presents to ER after reportedly drinking ETOH in an attempt to kill himself. BAT was 0.128 upon arrival. Once sober, assessment was completed. Pt woken up for assessment and was alice and cooperative. Flat affect. States he is "so tired and done." States he has been having increasing depression and SI with a plan to drink ETOH and OD on pills. Denies HI. Denies AV hallusinations. Still currently endorsing SI and is unable to contract for safety." Patient was seen today in his room, he was approached by ad copy writer. Patient was fairly lethargic today states that he was feeling tired. He was somewhat uncooperative with the interview only answered some questions. Claims that he came into the hospital because he was feeling depressed and wanted to go to [facility]. Claims that he was having suicidal thoughts however did not mention a specific plan. He claims that someone at the detention told him about [address] and how "you guys help people". He is reporting some anxiety, does claim that he has minor withdrawals including tremors. Claims that he is not feeling well was mildly irritable during the interview. He asked ad copy writer if he could call [facility] for him. Denied any other stressors besides being homeless recently got "kicked out" of his old place. Claims that his sleep and appetite are fair. Patient denies any current suicidal or homicidal ideations intent or plan. At this time patient denies any auditory or visual hallucinations. Patient denies any flight of ideas racing thoughts and increased in goal directed behavior. Patient admits to using alcohol drinking "several beers" a day. Claims that he also smokes marijuana. He was a fairly poor historian, did not offer much past psychiatric or social history information." Hospital course: Upon admission to the unit patient was directable and agreeable to commence treatment and signed adult voluntary form. Patient was initially disruptive on the unit, intrusive and inappropriate with other staff and patients however with time and treatment he eventually got along well with other patients on the unit and followed unit protocol. Patient was compliant with the medications and denied any side effects throughout hospital course. Patient was started on trazodone and Seroquel nightly for sleep/mood, Zoloft 25 mg nightly for mood/anxiety, patient was also started on a low-dose of Librium, titrated down for alcohol withdrawal. He was refusing any anticraving medications for alcohol. Patient spoke of his stressors and engaged in therapy both group and individual. Patient was also seen by medical team for history and physical exam. Throughout the course of the hospitalization patient gradually improved with regards to mood, anxiety, suicidal thoughts, sleep and returned back to their baseline level of functioning. Patient continues to be inappropriate with certain staff members and female patients, disrupting the safety in milieu of the unit and therefore is inappropriate for further hospitalization. On the day of discharge patient denied any suicidal or homicidal ideations intent or plan denied any auditory or visual hallucinations. Patient endorsed wanting to live for their health, sobriety and family. The patient denied any access to guns or weapons. Patient denied any paranoia and did not endorse any delusions. Patient does have a significant history of substance abuse and was counseled on abstaining from all substances including alcohol and marijuana. Patient elected to do outpatient substance use treatment program through their outpatient provider. Patient claims that he will call the access line for intake and rehab at [facility]. He is agreeable to stay in a detention until then. Patient was also counseled on the medications and need for regular compliance and was encouraged to follow-up with their outpatient appointment for mental health and also for primary care. Patient asked ad copy writer to speak with his parking control officer over the phone, ad copy writer gave her update on his condition and day for discharge which is today and she notified ad copy writer and patient that he needs to provide discharge paperwork to her and also call her tomorrow. Mental status exam: General Appearance: Patient appears to be wearing a hooded, stated age is alert, manipulative at times, and attempts to be cooperative. Patient is in no acute distress and has improved hygiene and grooming Behavior: Patient is calmly seated without any agitated behavior. Manipulative, inappropriate at times to certain patients Speech: Patient's speech is fluent and nonpressured. Mood/Affect: Patient reports their mood is "good", affect is congruent and euthymic. Suicidality/Homicidality: Patient denies having any suicidal or homicidal ideation intent or plan. Perceptions: Patient denies any auditory or visual hallucinations. Though content/process: There is no evidence of any delusional thought content and thought process is linear and goal-directed. More future oriented Memory and concentration: AOX3, grossly intact for the purposes of this session. Can spell "WORLD" backwards correctly. Judgment and insight: Chronically poor/impulsive, however has improved with guarded prognosis Impression: Depressive disorder unspecified Alcohol use disorder severe dependence Cannabis use disorder Personality disorder unspecified, rule out antisocial personality disorder Homelessness Legal problem Nicotine dependence Plan: -Continue with discharge today as patient has improved and stabilized psychiatrically and is not currently an imminent threat to themself and/or others. Patient will remain at chronically elevated risk for harm to self and/or others due to their impulsivity and inappropriateness -Continue medications: Seroquel 50 mg nightly for sleep/mood, Zoloft 25 mg nightly for mood/anxiety. -Patient was counseled on the need for medication compliance and appropriate follow-up at mental health and also primary care for medical issues. Patient verbalized understanding and agreed. -Social work to help coordinate patients discharge today, he will be going to a detention. He will continue to attempt to call the access line for intake to [facility]. also to ensure safe home environment that guns/weapons are either removed from the home or locked away. Social work also to arrange for patients follow up appointments with [facility] for psychiatric care along with follow up with primary care provider. -Patient counseled on abstaining from recreational drugs and marijuana and alcohol. Was informed/educated on the adverse effects on their physical and mental health. Patient verbally agreed and understood. -Patient was instructed to return to the hospital or seek immediate medical care if their psychiatric or medical symptoms do worsen or reoccur. Allergies Allergy/AdvReac Type Severity Reaction Status Date / Time No Known Allergies Allergy Verified 11/11/24 19:32 Laboratory Results WBC 7.0 k/uL (3.8-10.6) 11/12/24 02:46 RBC 4.93 m/uL (4.30-5.90) 11/12/24 02:46 Hgb 13.5 gm/dL (13.0-17.5) 11/12/24 02:46 Hct 41.3 % (39.0-53.0) 11/12/24 02:46 MCV 83.6 fL (80.0-100.0) 11/12/24 02:46 MCH 27.3 pg (25.0-35.0) 11/12/24 02:46 MCHC 32.6 g/dL (31.0-37.0) 11/12/24 02:46 RDW 13.7 % (11.5-15.5) 11/12/24 02:46 Plt Count 311 k/uL (150-450) 11/12/24 02:46 MPV 7.1 11/12/24 02:46 Neutrophils % 55 % 11/12/24 02:46 Lymphocytes % 30 % 11/12/24 02:46 Monocytes % 6 % 11/12/24 02:46 Eosinophils % 5 % 11/12/24 02:46 Basophils % 1 % 11/12/24 02:46 Neutrophils # 3.9 k/uL (1.3-7.7) 11/12/24 02:46 Lymphocytes # 2.1 k/uL (1.0-4.8) 11/12/24 02:46 Monocytes # 0.4 k/uL (0-1.0) 11/12/24 02:46 Eosinophils # 0.4 k/uL (0-0.7) 11/12/24 02:46 Basophils # 0.0 k/uL (0-0.2) 11/12/24 02:46 Sodium 135 mmol/L (137-145) L 11/12/24 02:46 Potassium 4.2 mmol/L (3.5-5.1) 11/12/24 02:46 Chloride 103 mmol/L (98-107) 11/12/24 02:46 Carbon Dioxide 23 mmol/L (22-30) 11/12/24 02:46 Anion Gap 9 mmol/L 11/12/24 02:46 BUN 11 mg/dL (9-20) 11/12/24 02:46 Creatinine 0.80 mg/dL (0.66-1.25) 11/12/24 02:46 Est GFR (CKD-EPI)AfAm >90 (>60 ml/min/1.73 sqM) 11/12/24 02:46 Est GFR (CKD-EPI)NonAf >90 (>60 ml/min/1.73 sqM) 11/12/24 02:46 Glucose 117 mg/dL (74-99) H 11/12/24 02:46 Calcium 8.4 mg/dL (8.4-10.2) 11/12/24 02:46 Total Bilirubin 0.4 mg/dL (0.2-1.3) 11/13/24 09:54 Conjugated Bilirubin 0.0 mg/dL (0.0-0.3) 11/13/24 09:54 Unconjugated Bilirubin 0.3 mg/dL (0.0-1.1) 11/13/24 09:54 Delta Bilirubin 0.1 mg/dL (0.0-0.2) 11/13/24 09:54 AST 25 U/L (17-59) 11/13/24 09:54 ALT 20 U/L (4-49) 11/13/24 09:54 Alkaline Phosphatase 98 U/L (38-126) 11/13/24 09:54 Total Protein 6.8 g/dL (6.3-8.2) 11/13/24 09:54 Albumin 3.9 g/dL (3.5-5.0) 11/13/24 09:54 TSH 0.378 mIU/L (0.465-4.680) L 11/13/24 09:54 Urine Color Yellow 11/12/24 00:04 Urine Appearance Clear (Clear) 11/12/24 00:04 Urine pH 5.5 (5.0-8.0) 11/12/24 00:04 Ur Specific [place] 1.028 (1.001-1.035) 11/12/24 00:04 Urine Protein Trace (Negative) H 11/12/24 00:04 Ur Protein Confirm Not Reportable 11/12/24 00:04 Urine Glucose (UA) Negative (Negative) 11/12/24 00:04 Urine Ketones Negative (Negative) 11/12/24 00:04 Urine Blood Negative (Negative) 11/12/24 00:04 Urine Nitrite Negative (Negative) 11/12/24 00:04 Urine Bilirubin Negative (Negative) 11/12/24 00:04 Ur Bilirubin Confirm Not Reportable 11/12/24 00:04 Urine Urobilinogen 2.0 mg/dL (<2.0) 11/12/24 00:04 Ur Leukocyte Esterase Negative (Negative) 11/12/24 00:04 Urine Opiates Screen Not Detected (NotDetected) 11/12/24 00:04 Ur Oxycodone Screen Not Detected (NotDetected) 11/12/24 00:04 Urine Methadone Screen Not Detected (NotDetected) 11/12/24 00:04 Ur Barbiturates Screen Not Detected (NotDetected) 11/12/24 00:04 U Tricyclic Antidepress Not Detected (NotDetected) 11/12/24 00:04 Ur Phencyclidine Scrn Not Detected (NotDetected) 11/12/24 00:04 Ur Amphetamines Screen Not Detected (NotDetected) 11/12/24 00:04 U Methamphetamines Scrn Not Detected (NotDetected) 11/12/24 00:04 U Benzodiazepines Scrn Not Detected (NotDetected) 11/12/24 00:04 Urine Cocaine Screen Not Detected (NotDetected) 11/12/24 00:04 U Marijuana (THC) Screen Detected (NotDetected) H 11/12/24 00:04 Influenza Type A (PCR) Not Detected (Not Detectd) 11/12/24 02:46 Influenza Type B (PCR) Not Detected (Not Detectd) 11/12/24 02:46 RSV (PCR) Not Detected (Not Detectd) 11/12/24 02:46 SARS-CoV-2 (PCR) Not Detected (Not Detectd) 11/12/24 02:46 Vital Signs Temp 97.3 F L 11/12/24 09:58 Pulse 87 11/12/24 09:58 Resp 20 11/12/24 09:58 BP 166/74 11/12/24 09:58 Pulse Ox 98 11/12/24 09:58 FiO2 Intake & Output 11/12/24 11/13/24 11/13/24 18:59 06:59 18:59 Weight 93.259 kg Patient Condition at Discharge: Stable Plan - Discharge Summary Discharge Rx Participant: Yes New Discharge Prescriptions: New Multivitamins, Thera [Multivitamin (formulary)] 1 each PO DAILY tab Thiamine [Vitamin B-1] 100 mg PO DAILY tab Sertraline [Zoloft] 25 mg PO HS 14 Days #14 tab Folic Acid 1 mg PO DAILY #0 tab Nicotine 14Mg/24Hr Patch [Habitrol] 1 patch TRANSDERM DAILY 14 Days #14 patch Nicotine Gum (Polacrilex) [Nicorette] 2 mg BUCCAL Q4HR PRN 30 Days #180 pieceofgum PRN Reason: Nicotine Cravings QUEtiapine [SEROquel] 50 mg PO HS 14 Days #14 tab Discharge Medication List Folic Acid 1 mg PO DAILY #0 tab 11/13/24 [Rx] Multivitamins, Thera [Multivitamin (formulary)] 1 each PO DAILY tab 11/13/24 [Rx] Nicotine 14Mg/24Hr Patch [Habitrol] 1 patch TRANSDERM DAILY 14 Days #14 patch 11/13/24 [Rx] Nicotine Gum (Polacrilex) [Nicorette] 2 mg BUCCAL Q4HR PRN 30 Days #180 pieceofgum 11/13/24 [Rx] QUEtiapine [SEROquel] 50 mg PO HS 14 Days #14 tab 11/13/24 [Rx] Sertraline [Zoloft] 25 mg PO HS 14 Days #14 tab 11/13/24 [Rx] Thiamine [Vitamin B-1] 100 mg PO DAILY tab 11/13/24 [Rx] Follow up Appointment(s)/Referral(s): None,Stated [Primary Care Provider] - 1-2 days Activity/Diet/Wound Care/Special Instructions: [facility] Discharge Info Avoid the use of street drugs and alcohol. Take all medications as prescribed. When you are in need of refills on your medications, please contact your outpa tient medical provider and/or outpatient psychiatrist. Please go to your scheduled outpatient appointments for aftercare treatment. If symptoms return or become worse, call the crisis line at or and/or visit the nearest emergency room for assistance. National Suicide and Crisis Lifeline - call or text 988 Discharge Disposition: OTHER INSTITUTION NOT DEFINED
[2024-11-13 18:04] LABS: Chol/HDL Ratio 3.86 Ratio; LDL Cholesterol,Calculated 87.7 mg/dL (0.0-131.0)
[2024-11-13] MEDS ORDERED: QUEtiapine 50 MG TAB PO SCH (21:00)
== END 2024-11-13 14:50 | disposition home or self-care (01) | DRG 881 ==
LOC: EC 18:50 → 3MHU 11-12 07:08
PROVIDERS: ADMIT Psychiatry & Neurology Psychiatry; ATTEND Psychiatry & Neurology Psychiatry
DX: F32.A Depression, unspecified (principal); R45.851 Suicidal ideations; F12.10 Cannabis abuse, uncomplicated; F10.229 Alcohol dependence with intoxication, unspecified; Z59.00 Homelessness unspecified; G89.29 Other chronic pain; M25.561 Pain in right knee; F17.200 Nicotine dependence, unspecified, uncomplicated; Y90.9 Presence of alcohol in blood, level not specified; F41.9 Anxiety disorder, unspecified; F60.9 Personality disorder, unspecified; F91.9 Conduct disorder, unspecified; Z65.3 Problems related to other legal circumstances; Z79.899 Other long term (current) drug therapy; Z11.52 Encounter for screening for COVID-19; Z28.310 Unvaccinated for COVID-19; Z28.21 Immunization not carried out because of patient refusal
CPT/HCPCS: 36415; 80053; 80061; 80076; 80306; 81003; 82075; 83036; 84439; 84443; 85025; 87636; 99285

== ENCOUNTER 2025-02-28 18:29 | Inpatient (IN) | payer OTHER ==
[2025-02-28] MEDS: VERAPAMIL SYRINGE (5 MG/10 ML) INTRAARTER ONE (09:21)
[2025-02-28] MEDS: NALOXONE 0.4 MG/ML 1 ML VIAL IVP STA (18:36)
--- NOTE | 2025-02-28 18:41 | ED ---
General Adult HPI - General Stated complaint: sTEMI Time Seen by Provider: 02/28/25 18:29 Source: patient, RN notes reviewed, old records reviewed - History of Present Illness Initial comments: This is a 44-year-old male who presents to the emergency department after ambulance was called to the scene because the patient had become unresponsive shook for a little bit. According to the girlfriend per EMS the patient was unresponsive for approximately 1 minute. Patient was being transported to go into the ambulance and he passed out again. Patient never in any time had any chest pain or difficulty breathing he was very lethargic for EMS and was able to answer all questions but extremely tired. - Related Data Previous Rx's Medication Instructions Recorded Folic Acid 1 mg PO DAILY #0 tab 11/13/24 Multivitamins, Thera [Multivitamin 1 each PO DAILY tab 11/13/24 (formulary)] Nicotine 14Mg/24Hr Patch [Habitrol] 1 patch TRANSDERM DAILY 14 Days 11/13/24 #14 patch Nicotine Gum (Polacrilex) 2 mg BUCCAL Q4HR PRN 30 Days #180 11/13/24 [Nicorette] pieceofgum QUEtiapine [SEROquel] 50 mg PO HS 14 Days #14 tab 11/13/24 Sertraline [Zoloft] 25 mg PO HS 14 Days #14 tab 11/13/24 Thiamine [Vitamin B-1] 100 mg PO DAILY tab 11/13/24 Allergies Allergy/AdvReac Type Severity Reaction Status Date / Time No Known Allergies Allergy Verified 11/14/24 02:16 Review of Systems ROS Statement: Those systems with pertinent positive or pertinent negative responses have been documented in the HPI. ROS Other: All systems not noted in ROS Statement are negative. Past Medical History Past Medical History: No Reported History History of Any Multi-Drug Resistant Organisms: None Reported Additional Past Surgical History / Comment(s): neck surgery, Past Psychological History: No Psychological Hx Reported Smoking Status: Current every day smoker General Exam - General Exam Comments Initial Comments: GENERAL: Patient is well-developed and well-nourished. Patient is nontoxic and well- hydrated and is in no acute distress. Patient seems extremely fatigued and very lethargic but is able to answer all my questions ENT: Neck is soft and supple. No significant lymphadenopathy is noted. Oropharynx is clear. Moist mucous membranes. Neck has full range of motion without eliciting any pain. EYES: The sclera were anicteric and conjunctiva were pink and moist. Extraocular movements were intact and pupils were equal round and reactive to light. Eyelid s were unremarkable. PULMONARY: Unlabored respirations. Good breath sounds bilaterally. No audible rales rhonchi or wheezing was noted. CARDIOVASCULAR: There is a regular rate and rhythm without any murmurs gallops or rubs. ABDOMEN: Soft and nontender with normal bowel sounds. SKIN: Skin is clear with no lesions or rashes and otherwise unremarkable. NEUROLOGIC: Patient is alert and oriented x3. Cranial nerves II through XII are grossly intact. Motor and sensory are also intact. Normal speech, volume and content. Symmetrical smile. MUSCULOSKELETAL: Normal extremities with adequate strength and full range of motion. LYMPHATICS: No significant lymphadenopathy is noted PSYCHIATRIC: Normal psychiatric evaluation. Course Vital Signs 02/28/25 18:36 Respiratory 18 Rate Medical Decision Making - Medical Decision Making EKG was interpreted by myself EKG shows a sinus rhythm at 95 bpm. Open 152 QRS is 101 QT interval 344 QTc is 396. Patient's EKG shows some slight ST segment elevation in V1 V2 and minimal ST segment elevation in V3 there is no reciprocal changes. Was pt. sent in by a medical professional or institution (, PA, FLO[employer], urgent care, hospital, or care home...) When possible be specific @ -No Did you speak to anyone other than the patient for history (EMS, parent, family, police, friend...)? What history was obtained from this source @ -No Did you review nursing and triage notes (agree or disagree)? Why? @ -I reviewed and agree with nursing and triage notes Were old charts reviewed (outside hosp., previous admission, EMS record, old EK G, old radiological studies, urgent care reports/EKG's, care home records)? Report findings @ -No old charts were reviewed Differential Diagnosis? @ -Differential Seizure: Recurrent seizure disorder, febrile seizure, alcohol withdrawal, stimulants, meningitis, encephalitis, intercranial hemorrhage, intracranial tumor, stroke, eclampsia, thyrotoxicosis, hypocalcemia, hyponatremia, hypernatremia, hypomagnesemia, psychogenic, this is not meant to be an all-inclusive list. Differential Syncope: Valvular disease, hypertrophic cardiomyopathy, pulmonary embolism, tamponade, tachycardia, bradycardia, TN, hypovolemia, hemorrhage, dissection, anemia, intracranial hemorrhage, seizure, hypoglycemia, carbon monoxide poisoning, this is not meant to be an all-inclusive list. EKG interpreted by me (3pts min.). @ -As above X-rays interpreted by me (1pt min.). @ -Chest x-ray showed no obvious abnormality. CT interpreted by me (1pt min.). @ -CT of the brain showed no acute abnormality. U/S interpreted by me (1pt. min.). @ -None done What testing was considered but not performed or refused? (CT, X-rays, U/S, labs)? Why? @ -None What meds were considered but not given or refused? Why? @ -None Did you discuss the management of the patient with other professionals (professionals i.e. , PA, [employer], lab, RT, psych nurse, social media marketing analyst, frame opener, teacher, college service officer, assistant case manager)? Give summary @ -I spoke with Dr. Bhat about the case he wanted the patient to go to [facility] after he received both the EMS EKG and our EKG Was smoking cessation discussed for >3mins.? @ -No Was critical care preformed (if so, how long)? @ -35 minutes Were there social determinants of health that impacted care today? How? (Homelessness, low income, unemployed, alcoholism, drug addiction, transportation, low edu. Level, literacy, decrease access to med. care, [facility], rehab)? @ -No Was there de-escalation of care discussed even if they declined (Discuss DNR or withdrawal of care, Hospice)? DNR status @ -No What co-morbidities impacted this encounter? (DM, HTN, Smoking, COPD, CAD, Cancer, CVA, ARF, Chemo, Hep., AIDS, mental health diagnosis, sleep apnea, morbid obesity)? @ -None Was patient admitted / discharged? Hospital course, mention meds given and route, prescriptions, significant lab abnormalities, going to OR and other pertinent info. @ -Patient was never having any chest pain he was extremely lethargic and mildly hypotensive patient did receive at least a liter of normal saline in the ER. We did call a STEMI overhead prior to the patient arriving however we are unable to get a hold of cardiology for 30 minutes. Because of the possible seizure I ordered a CAT scan of the brain which showed no acute abnormality patient was then taken immediately to the [facility] Undiagnosed new problem with uncertain prognosis? @ -No Drug Therapy requiring intensive monitoring for toxicity (Heparin, Nitro, Insulin, Cardizem)? @ -No Were any procedures done? @ -No Diagnosis/symptom? @ -STEMI Acute, or Chronic, or Acute on Chronic? @ -Acute Uncomplicated (without systemic symptoms) or Complicated (systemic symptoms)? @ -Complicated Side effects of treatment? @ -No Exacerbation, Progression, or Severe Exacerbation? @ -No Poses a threat to life or bodily function? How? (Chest pain, USA, TN, pneumonia, PE, COPD, DKA, ARF, appy, cholecystitis, CVA, Diverticulitis, Homicidal, Suicidal, threat to staff... and all critical care pts) @ -Yes this can lead to an TN and endorgan dysfunction Diagnosis/symptom? @ -Syncope Acute, or Chronic, or Acute on Chronic? @ -Acute Uncomplicated (without systemic symptoms) or Complicated (systemic symptoms)? @ -Complicate Side effects of treatment? @ -None Exacerbation, Progression, or Severe Exacerbation] @ -No Poses a threat to life or bodily function? @ -Yes this could be secondary to an arrhythmia Diagnosis/symptom? @ -Seizure Acute, or Chronic, or Acute on Chronic? @ -Acute Uncomplicated (without systemic symptoms) or Complicated (systemic symptoms)? @ -Complicated Side effects of treatment? @ -None Exacerbation, Progression, or Severe Exacerbation] @ -No Poses a threat to life or bodily function? @ -No Diagnosis/symptom? @ -Lethargy Acute, or Chronic, or Acute on Chronic? @ -Acute Uncomplicated (without systemic symptoms) or Complicated (systemic symptoms)? @ -Complicated Side effects of treatment? @ -None Exacerbation, Progression, or Severe Exacerbation] @ -No Poses a threat to life or bodily function? @ -No - Lab Data Result diagrams: 02/28/25 18:34 02/28/25 18:34 Lab Results 02/28/25 02/28/25 02/28/25 Range/Units 18:34 18:34 18:34 WBC 7.63 (4.50-10.00) 10*3/uL RBC 5.36 (4.40-5.60) 10*6/uL Hgb 14.7 (13.0-17.0) g/dL Hct 44.1 (39.6-50.0) % MCV 82.3 (80.0-97.0) fL MCH 27.4 (27.0-32.0) pg MCHC 33.3 (32.0-37.0) g/dL Plt Count 322 (140-440) 10*3/uL MPV 9.2 L (9.5-12.2) fL Immature Gran % (Auto) 0.3 % Neutrophils % 65.0 % Lymphocytes % 25.6 % Monocytes % 8.3 % Eosinophils % 0.3 % Basophils % 0.5 % Immature Gran # 0.02 (0.00-0.04) 10*3/uL Neutrophils # 4.97 (1.80-7.70) 10*3/uL Lymphocytes # 1.95 (0.90-5.00) 10*3/uL Monocytes # 0.63 (0.20-1.00) 10*3/uL Eosinophils # 0.02 L (0.04-0.35) 10*3/uL Basophils # 0.04 (0.00-0.10) 10*3/uL PT 12.1 (10.0-12.5) sec INR 1.1 (<1.2) APTT 21.1 L (22.0-30.0) sec Sodium 136 L (137-145) mmol/L Potassium 3.9 (3.5-5.1) mmol/L Chloride 102 (98-107) mmol/L Carbon Dioxide 16 L (22-30) mmol/L Anion Gap 18 mmol/L BUN 11 (9-20) mg/dL Creatinine 1.13 (0.66-1.25) mg/dL Est GFR (CKD-EPI)AfAm >90 (>60 ml/min/1.73 sqM) Est GFR (CKD-EPI)NonAf 78 (>60 ml/min/1.73 sqM) Glucose 135 H (74-99) mg/dL Calcium 9.1 (8.4-10.2) mg/dL Magnesium 1.8 (1.6-2.3) mg/dL Total Bilirubin 1.4 H (0.2-1.3) mg/dL AST 40 (17-59) U/L ALT 21 (4-49) U/L Alkaline Phosphatase 83 (38-126) U/L Troponin I (0.000-0.034) ng/mL Total Protein 7.2 (6.3-8.2) g/dL Albumin 4.3 (3.5-5.0) g/dL Serum Alcohol 31 mg/dL 02/28/25 Range/Units 18:34 WBC (4.50-10.00) 10*3/uL RBC (4.40-5.60) 10*6/uL Hgb (13.0-17.0) g/dL Hct (39.6-50.0) % MCV (80.0-97.0) fL MCH (27.0-32.0) pg MCHC (32.0-37.0) g/dL Plt Count (140-440) 10*3/uL MPV (9.5-12.2) fL Immature Gran % (Auto) % Neutrophils % % Lymphocytes % % Monocytes % % Eosinophils % % Basophils % % Immature Gran # (0.00-0.04) 10*3/uL Neutrophils # (1.80-7.70) 10*3/uL Lymphocytes # (0.90-5.00) 10*3/uL Monocytes # (0.20-1.00) 10*3/uL Eosinophils # (0.04-0.35) 10*3/uL Basophils # (0.00-0.10) 10*3/uL PT (10.0-12.5) sec INR (<1.2) APTT (22.0-30.0) sec Sodium (137-145) mmol/L Potassium (3.5-5.1) mmol/L Chloride (98-107) mmol/L Carbon Dioxide (22-30) mmol/L Anion Gap mmol/L BUN (9-20) mg/dL Creatinine (0.66-1.25) mg/dL Est GFR (CKD-EPI)AfAm (>60 ml/min/1.73 sqM) Est GFR (CKD-EPI)NonAf (>60 ml/min/1.73 sqM) Glucose (74-99) mg/dL Calcium (8.4-10.2) mg/dL Magnesium (1.6-2.3) mg/dL Total Bilirubin (0.2-1.3) mg/dL AST (17-59) U/L ALT (4-49) U/L Alkaline Phosphatase (38-126) U/L Troponin I 0.026 (0.000-0.034) ng/mL Total Protein (6.3-8.2) g/dL Albumin (3.5-5.0) g/dL Serum Alcohol mg/dL Disposition Clinical Impression: Non-STEMI (non-ST elevated myocardial infarction), Seizure, Syncope, Lethargy Disposition: ADMITTED IP TO THIS HOSP Time of Disposition: 20:00
--- NOTE | 2025-02-28 18:47 | XR ---
EXAMINATION TYPE: XR chest 1V DATE OF EXAM: 02/28/2025 6:41 PM COMPARISON: Chest radiographs from 05/10/2024 TECHNIQUE: XR chest 1V Portable AP radiograph of the chest. CLINICAL INDICATION:Male, 44 years old with history of Chest Pain; FINDINGS: Lungs/Pleura: There is no evidence of pleural effusion, focal consolidation, or pneumothorax. Chroni c senescent parenchymal change. Pulmonary vascularity: Unremarkable. Heart/mediastinum: Cardiomediastinal silhouette is unremarkable. Musculoskeletal: No acute osseous pathology. Remote left clavicle injury. IMPRESSION: No acute cardiopulmonary disease/process. [facility], , 02/28/2025 6:45 PM
[2025-02-28 18:49] LABS: Basophils # (A) 0.04 10*3/uL (0.00-0.10); Basophils % (A) 0.5 %; Eosinophils # (A) 0.02 10*3/uL (0.04-0.35); Eosinophils % (A) 0.3 %; HCT 44.1 % (39.6-50.0); HGB 14.7 g/dL (13.0-17.0); Lymphocytes # (A) 1.95 10*3/uL (0.90-5.00); Lymphocytes % (A) 25.6 %; MCH 27.4 pg (27.0-32.0); MCHC 33.3 g/dL (32.0-37.0); MCV 82.3 fL (80.0-97.0); Mean Platelet Volume 9.2 fL (9.5-12.2); Monocytes # (A) 0.63 10*3/uL (0.20-1.00); Monocytes % (A) 8.3 %; Neutrophils # (A) 4.97 10*3/uL (1.80-7.70); Platelet Count 322 10*3/uL (140-440); RBC 5.36 10*6/uL (4.40-5.60); RDW 12.8 % (11.5-14.5); WBC 7.63 10*3/uL (4.50-10.00)
[2025-02-28 18:58] VITALS: RESP 18
[2025-02-28] MEDS: NITROGLYCERIN OINT 1 INCH/GM PACKET TOPICAL STA (18:58)
[2025-02-28 19:04] LABS: INR 1.1 (<1.2); Prothrombin Time 12.1 sec (10.0-12.5)
[2025-02-28 19:05] LABS: ALT 21 U/L (4-49); African American GFR (CKD) >90 (>60 ml/min/1.73 sqM); Albumin 4.3 g/dL (3.5-5.0); Alcohol 31 mg/dL; Anion Gap 18 mmol/L; Blood Urea Nitrogen 11 mg/dL (9-20); Calcium 9.1 mg/dL (8.4-10.2); Carbon Dioxide 16 mmol/L (22-30); Chloride 102 mmol/L (98-107); Glucose 135 mg/dL (74-99); Non-African American GFR(CKD) 78 (>60 ml/min/1.73 sqM); Sodium 136 mmol/L (137-145); Total Bilirubin 1.4 mg/dL (0.2-1.3); Total Protein 7.2 g/dL (6.3-8.2)
[2025-02-28 19:11] LABS: AST 40 U/L (17-59); Alkaline Phosphatase 83 U/L (38-126); Magnesium 1.8 mg/dL (1.6-2.3); Potassium 3.9 mmol/L (3.5-5.1)
--- NOTE | 2025-02-28 19:19 | CT ---
EXAMINATION TYPE: CT brain wo con CT DLP: 1186.4 mGycm, Automated exposure control for dose reduction was used. DATE OF EXAM: 02/28/2025 7:13 PM COMPARISON: CT brain 08/24/2024 CLINICAL INDICATION:Male, 44 years old with history of Seizure, AMS, patient going to hospital laboratory technician for ab normal ekg- CODE STEMI TECHNIQUE: Brain: Multiple axial CT images of the brain were obtained without IV contrast. . Coronal and sagitta l reformats reviewed. FINDINGS: Brain: Extra-axial spaces: No abnormal extra-axial fluid collections. Ventricular system: Within normal limits Cerebral parenchyma: No acute intraparenchymal hemorrhage or mass effect. The ley-white junction is well differentiated. Cerebellum: Unremarkable. Mass effect: No evidence of midline shift. Intracranial vasculature: unremarkable Soft tissues: Normal. Calvarium/osseous structures: No depressed skull fracture. Remote left lamina papyracea fracture. Paranasal sinuses and mastoid air cells: Clear. Cerumen within the left external auditory canal abutt ing the tympanic membrane. Visualized orbits: Orbital contents are intact. IMPRESSION: No acute intracranial process. [facility], , 02/28/2025 7:16 PM
[2025-02-28] MEDS: LIDOCAINE 1% INJ 10MG/ML (30 ML VIAL-PF) SQ ONE (19:20)
[2025-02-28] MEDS: HEPARIN SODIUM 1,000 UN/ML (10ML VL) IV ONE (19:26)
[2025-02-28] MEDS: SODIUM CHLORIDE 0.9% 1,000 ML IV ONE (19:26)
[2025-02-28] MEDS: IV FLUID CONTINUATION 1,000 ML IV ONE (19:26)
[2025-02-28 19:35] LABS: Partial Thromboplastin Time 21.1 sec (22.0-30.0)
[2025-02-28] MEDS: IOPAMIDOL-370 100ML BTL INJ ONE (19:35)
--- NOTE | 2025-02-28 19:42 | P.CARDCATH ---
Description of Procedure: PROCEDURES PERFORMED: Left heart catheterization, bilateral coronary angiography, ultrasound guided arterial access INDICATION: Possible STEMI CONSENT:I have discussed the risks, benefits and alternative therapies for the above-mentioned procedure and for both sedation/analgesia as well as necessary blood product administration, if indicated, as they pertain to this patient. The patient has indicated understanding and acceptance of the risks and procedures discussed. PROCEDURE: After the risks, benefits and alternatives of the above mentioned procedure explained in detail with the patient, informed consent was obtained. Patient was taken to the catheterization lab and prepped and draped in usual fashion. Ultrasound guidance was used to assess for arterial access. 1% lidocaine was used to anesthetize the right radial artery. A 6-Japanese sheath was placed in the right radial artery using modified Seldinger technique and ultrasound guidance. Left coronary angiography was performed with a 5-Japanese JL 3.5 catheter and right coronary angiography was performed with a 5-Japanese AR2 catheter in various views. A 5-Japanese AR2 catheter was inserted into the left ventricle and pressure measurements were obtained. The right radial sheath was removed and a TR band was placed with hemostasis achieved. The patient tolerate d the procedure well. Patient was transported back to the post catheterization holding area in stable condition. Conscious Sedation: Patient was monitored under the direct supervision of myself for a total duration of 15 minutes. Sedation was not given secondary to patient being somewhat confused to begin with. HEMODYNAMICS: Aorta: 92/72 LV: 104/5, LVEDP 9 SELECTIVE CORONARY ARTERIOGRAPHY: LEFT MAIN: The left main is a large caliber vessel which bifurcates into the LAD and circumflex. There is no significant stenosis. LEFT ANTERIOR DESCENDING CORONARY ARTERY: LAD is a large caliber vessel which wraps around to the apex. There is no significant stenosis. LEFT CIRCUMFLEX CORONARY ARTERY: Left circumflex is a moderate caliber vessel without significant stenosis. RIGHT CORONARY ARTERY: The right coronary artery is a large caliber vessel which gives off a PDA and PLV branch and is the dominant vessel. There is no significant stenosis. FINAL IMPRESSION: 1. Normal coronary arteries as described above. 2. Normal left sided filling pressures PLAN: 1. Aggressive risk factor modification per most recent ACC/AHA guidelines. 2. Follow-up in the office in 1-2 weeks.
[2025-02-28] MEDS ORDERED: RX INFO: IV CONTRAST WAS GIVEN 1 EACH MISC MISCELLANE PRN (19:48)
--- NOTE | 2025-02-28 19:48 | P.CRDCN ---
History of Present Illness History of present illness: HISTORY OF PRESENTING ILLNESS This is a pleasant 44-year-old with past medical history significant for depression, anxiety, tobacco abuse, marijuana use, alcohol use. 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 Patient cannot recall events and is poor historian. Patient mainly staying "he has suicidal thoughts ". He denies any chest pain or pressure. Per significant other, he had been doing fine and had been left alone for approximately 3 hours and then significant other came home and was talking patient normally. She went out of the room and then came back in and he was on the ground shaking, unresponsive with some foaming around the mouth. Concern of seizure-like activity. Patient somewhat better however had a recurrent episode of being unresponsive after only a few minutes and EMS was called and brought patient to the ER. Patient had EKG which shows sinus rhythm with [address] elevation V2 and approximate [address] elevation V3 through V5 however no reciprocal changes. Patient was noted to be hypotensive with readings in the 80s over 50s per ER physician. Given concerning EKG STEMI page was called out. Patient seen and examined and not having any active chest pain however poor historian. He denies any active suicide attempts and denies taking any medications. Significant other states he does smoke, CAGE alcohol, occasional marijuana. Previously used cocaine however has not had a number of years. No family history of CAD. REVIEW OF SYSTEMS At the time of my exam: CONSTITUTIONAL: Denies fever or chills. CARDIOVASCULAR: Denies chest pain, shortness of breath, orthopnea, PND or palpitations. RESPIRATORY: Denies cough. GASTROINTESTINAL: Denies abdominal pain, diarrhea, constipation, nausea or vomiting. MUSCULOSKELETAL: Denies myalgias. NEUROLOGIC: Denies numbness, tingling or weakness. ENDOCRINE: Denies fatigue, weight change, polydipsia or polyurina. GENITOURINARY: Denies burning, hematuria or urgency with micturation. HEMATOLOGIC: Denies history of anemia or bleeding. PHYSICAL EXAMINATION Vital signs reviewed. CONSTITUTIONAL: No apparent distress. HEENT: Head is normocephalic. Pupils are equal, round. Sclerae anicteric. Mucous membranes of the mouth are moist. No JVD. No carotid bruit. CHEST EXAMINATION: Lungs are clear to auscultation. No chest wall tenderness is noted on palpation or with deep breathing. HEART EXAMINATION: Regular rate and rhythm. S1, S2 heard. No murmurs, gallops or rub. ABDOMEN: Soft, nontender. Positive bowel sounds. EXTREMITIES: 2+ peripheral pulses, no lower extremity edema and no calf tenderness. NEUROLOGIC EXAMINATION: Patient is awake, alert and oriented x3. ASSESSMENT Abnormal EKG with ST elevation, possible J-point elevation, rule out KS Hypotension Altered mental status Seizure-like activity Suicidal ideation Marijuana use, tobacco abuse, alcohol use History of depression PLAN Patient is EKG without reciprocal changes however does have significant ST elevations which appear changed from prior. We therefore discussed definitive evaluation with heart catheterization and patient was agreeable. We discussed findings with significant other. Rule out accidental or intentional overdose. Check urine drug screen. Continue current supportive care. Bedside echocardiogram performed which showed preserved EF 55% without significant pericardial effusion. Further recommendations to follow. Past Medical History Past Medical History: No Reported History History of Any Multi-Drug Resistant Organisms: None Reported Additional Past Surgical History / Comment(s): neck surgery, Past Psychological History: No Psychological Hx Reported Smoking Status: Current every day smoker Medications and Allergies Home Medications Medication Instructions Recorded Confirmed Type Folic Acid 1 mg PO DAILY #0 tab 11/13/24 Rx Multivitamins, Thera [Multivitamin 1 each PO DAILY tab 11/13/24 Rx (formulary)] Nicotine 14Mg/24Hr Patch [Habitrol] 1 patch TRANSDERM DAILY 14 Days 11/13/24 Rx #14 patch Nicotine Gum (Polacrilex) 2 mg BUCCAL Q4HR PRN 30 Days #180 11/13/24 Rx [Nicorette] pieceofgum QUEtiapine [SEROquel] 50 mg PO HS 14 Days #14 tab 11/13/24 Rx Sertraline [Zoloft] 25 mg PO HS 14 Days #14 tab 11/13/24 Rx Thiamine [Vitamin B-1] 100 mg PO DAILY tab 11/13/24 Rx Allergies Allergy/AdvReac Type Severity Reaction Status Date / Time No Known Allergies Allergy Verified 11/14/24 02:16 Physical Exam Vitals: Vital Signs Resp 02/28/25 18:36 18 Intake and Output 02/28/25 02/28/25 02/28/25 06:59 14:59 22:59 Intake Total 900 Balance 900 Intake: IV 900 Results 02/28/25 18:34 02/28/25 18:34 Cardiac Enzymes 02/28/25 02/28/25 Range/Units 18:34 18:34 AST 40 (17-59) U/L Troponin I 0.026 (0.000-0.034) ng/mL Coagulation 02/28/25 Range/Units 18:34 PT 12.1 (10.0-12.5) sec APTT 21.1 L (22.0-30.0) sec CBC 02/28/25 Range/Units 18:34 WBC 7.63 (4.50-10.00) 10*3/uL RBC 5.36 (4.40-5.60) 10*6/uL Hgb 14.7 (13.0-17.0) g/dL Hct 44.1 (39.6-50.0) % Plt Count 322 (140-440) 10*3/uL Comprehensive Metabolic Panel 02/28/25 Range/Units 18:34 Sodium 136 L (137-145) mmol/L Potassium 3.9 (3.5-5.1) mmol/L Chloride 102 (98-107) mmol/L Carbon Dioxide 16 L (22-30) mmol/L BUN 11 (9-20) mg/dL Creatinine 1.13 (0.66-1.25) mg/dL Glucose 135 H (74-99) mg/dL Calcium 9.1 (8.4-10.2) mg/dL AST 40 (17-59) U/L ALT 21 (4-49) U/L Alkaline Phosphatase 83 (38-126) U/L Total Protein 7.2 (6.3-8.2) g/dL Albumin 4.3 (3.5-5.0) g/dL Intake and Output 02/28/25 02/28/25 02/28/25 06:59 14:59 22:59 Intake Total 900 Balance 900 Intake: IV 900 02/28/25 18:34 02/28/25 18:34
[2025-02-28] MEDS ORDERED: NICOTINE GUM (POLACRILEX) 2 MG GUM BUCCAL PRN (20:39)
[2025-02-28 21:57] LABS: Amphetamine Screen,Urine Not Detected (NotDetected); Barbiturate Screen,Urine Not Detected (NotDetected); Benzodiazepines Screen,Urine Not Detected (NotDetected); Cocaine Screen,Urine Not Detected (NotDetected); Methadone Screen, Urine Not Detected (NotDetected); Opiate Screen,Urine Not Detected (NotDetected); Oxycodone Screen, Urine Not Detected (NotDetected); Phencyclidine Screen,Urine Not Detected (NotDetected); Tricyclic Antidepressant,Urine Not Detected (NotDetected); Urn Cannabinoid Scrn Detected (NotDetected)
[2025-02-28] MEDS: SODIUM CHLORIDE 0.9% 500 ML 500 ML IV STA (22:07)
[2025-02-28] MEDS: NICOTINE 14MG/24HR PATCH TRANSDERM SCH (22:08)
[2025-02-28] MEDS: SODIUM CHLORIDE 0.9% 1,000 ML IV SCH (22:08)
[2025-02-28] MEDS: QUEtiapine 50 MG TAB PO SCH (22:56)
[2025-02-28] MEDS: SERTRALINE 25 MG TAB PO SCH (22:56)
[2025-03-01] MEDS: HYDROcodone/APAP 5-325MG 1 EACH TAB PO PRN (04:13)
[2025-03-01 04:45] VITALS: BP 109/65; PULSE 89; TEMP 98.5
[2025-03-01] MEDS ORDERED: MULTIVITAMINS, THERA 1 EACH TAB PO SCH (09:00)
[2025-03-01] MEDS ORDERED: THIAMINE 100 MG TAB PO SCH (09:00)
[2025-03-01] MEDS ORDERED: FOLIC ACID 1 MG TAB PO SCH (09:00)
== END 2025-03-01 07:30 | disposition left against medical advice (07) | DRG 287 ==
LOC: EC 18:29 → 3SCARD 19:49
PROVIDERS: ADMIT Hospitalist; ATTEND Hospitalist
PROC: B2111ZZ Fluoroscopy of Multiple Coronary Arteries using Low Osmolar Contrast (ICD-10-PCS; 2025-02-28)
PROC: B2151ZZ Fluoroscopy of Left Heart using Low Osmolar Contrast (ICD-10-PCS; 2025-02-28)
PROC: 4A023N7 Measurement of Cardiac Sampling and Pressure, Left Heart, Percutaneous Approach (ICD-10-PCS; principal; 2025-02-28 18:37)
DX: R94.31 Abnormal electrocardiogram [ECG] [EKG] (principal); R45.851 Suicidal ideations; I95.9 Hypotension, unspecified; F17.200 Nicotine dependence, unspecified, uncomplicated; Z79.899 Other long term (current) drug therapy
CPT/HCPCS: 36415; 70450; 71045; 80053; 80306; 80320; 83735; 84484; 85025; 85610; 85730; 93005; 93458; 96374; 99291